=== PATIENT | male | born 1950 | race Caucasian/White ===

== ENCOUNTER 2019-10-19 11:05 | Outpatient (RCR) | payer MEDICARE, SELFPAY ==
--- NOTE | 2019-10-19 13:12 | PTOPEVAL ---
Thank you for referring this patient to [facility]. Please review, sign, date and return this plan of care RAMÓN. I agree with and certify that the following plan of care is medically necessary. Referring Physician Date Admitting Provider: Attending Provider: PHYSICIAN NOT ON STAFF Referring Provider: *PT Outpatient Evaluation Start: 10/19/19 11:14 Freq: Status: Active Protocol: Document 10/19/19 11:15 Helen (Rec: 10/19/19 13:01 [facility] [id number]) Therapy Assessment Status Assessment Status Assessment Status Evaluation Outpatient Past Medical History Neurological History Hx Cerebrovascular Accident (CVA) Yes Hx Seizures Yes Cardiovascular History Hx Hypertension Yes Endocrine History Hx Thyroidectomy Yes: THYROID CA Evaluation Information Problem Diagnosis s/p R quad tendon repair Onset 09/18/19 Additional Evaluation Detail surgery was on 10/05/19. Subjective Information patient reports he was Query Text:As Reported By Patient/ changing a light bulb on 09/18 Family . he reports he fell down 3 steps and ran into a concrete floor. he reports he tore his R quad tendon. he reports he had surgery to repair the torn tendon 2 weeks ago. Prior Level of Function Comments Additional Prior Level of Function patient reports prior fallr he Comments was independent with all activities. he reports he is retired but is active daily. he reports he likes to peacock and walk. Pain Assessment Timing of Pain Assessment Timing of Pain Assessment Assessment Self Report Self Report Pain Level 0 Pain Score Pain Score 0: Self Report Additional Pain Score Comments patient reports no pain for the last week. Lower Extremity Range of Motion Knee Range of Motion Right Knee Flexion Range of Motion - Passive 30 Knee Extension Range of Motion - Passive -5 Lower Extremity Muscle Strength Testing General Lower Extremity Strength Gross Lower Extremity Strength moderate quad recruitment of the R quadriceps in supine. R knee strength not measured this date due to inability to perform active knee mobility at this time. Palpation Assessment Palpation Palpation moderate palpable swelling noted in surrounding the R k
--- NOTE | 2019-12-26 07:19 | PTOPEVAL ---
Thank you for referring this patient to [facility]. Please review, sign, date and return this plan of care RAMÓN. I agree with and certify that the following plan of care is medically necessary. Referring Physician Date Admitting Provider: Attending Provider: PHYSICIAN NOT ON STAFF Referring Provider: *PT Outpatient Evaluation Start: 10/19/19 11:14 Freq: Status: Active Protocol: Document 12/19/19 07:30 KORICAMELIARao (Rec: 12/26/19 07:19 [facility] [id number]) Therapy Assessment Status Assessment Status Assessment Status Re-evaluation Outpatient Past Medical History Neurological History Hx Cerebrovascular Accident (CVA) Yes Hx Seizures Yes Cardiovascular History Hx Hypertension Yes Endocrine History Hx Thyroidectomy Yes: THYROID CA Pain Assessment Pain Scale Pain Scale Used Numeric (1 - 10) Self Report Pain Assessment Right Knee(s) Reported Pain Level 2 Pain Score Pain Score 2: Self Report Lower Extremity Range of Motion General Lower Extremity Range of Motion Gross Lower Extremity Range of Motion Pt. presents with 0-100 Comments degrees right knee AROM Lower Extremity Muscle Strength Testing General Lower Extremity Strength Gross Lower Extremity Strength right hip flexion 4+/5, right hip abduction 4/5, right knee extension 4-/5, right knee flexion 4+/5, Gait Assessment Gait Assessment Additional Ambulation Comments Pt. ambulates without an AD demonstrating slightly decreased stance time on the right compared to the left. Pt. continues to have difficulty with establishing reciprical pattern with stair navigation and cannot eccentricly load the right l.e . PT Clinical Summary Clinical Summary Protocol: PTEVCODE Clinical Summary Pt. has met initial goals and new goals were established on 12/05/19. He continues to progress ROM gradually. Continued treatment is indicated in order to normalize gait and strength and continue to progress toward latest established goals. PT Services Indicated Yes Rehabilitation Potential Excellent Potential Barriers to Goal Achievements None Support Requirements For Optimal None
--- NOTE | 2020-01-09 09:33 | PTOPEVAL ---
Thank you for referring this patient to [facility]. Please review, sign, date and return this plan of care RAMÓN. I agree with and certify that the following plan of care is medically necessary. Referring Physician Date Admitting Provider: Attending Provider: PHYSICIAN NOT ON STAFF Referring Provider: *PT Outpatient Evaluation Start: 10/19/19 11:14 Freq: Status: Active Protocol: Document 01/09/20 09:28 KORICAMELIARao (Rec: 01/09/20 09:33 [facility] [id number]) Therapy Assessment Status Assessment Status Assessment Status Discharge Outpatient Past Medical History Neurological History Hx Cerebrovascular Accident (CVA) Yes Hx Seizures Yes Cardiovascular History Hx Hypertension Yes Endocrine History Hx Thyroidectomy Yes: THYROID CA Evaluation Information Problem Subjective Information Pt. reports he was able to Query Text:As Reported By Patient/ walk through the [facility] yesterday. He states that he still has knee stiffness, but notes gradual improvement every week. He states that he will continue to exercise at home and is ready for discharge. Pain Assessment Self Report Self Report Pain Level 0 Pain Score Pain Score 0: Self Report Lower Extremity Range of Motion General Lower Extremity Range of Motion Gross Lower Extremity Range of Motion Right knee AROM present at 0- Comments 112 degrees. Lower Extremity Muscle Strength Testing General Lower Extremity Strength Gross Lower Extremity Strength bilateral hip flexion 5/5, bilateral knee flexion 5/5, bilateral knee extension 5/5, bilateral ankle dorsiflexion 5 /5 Pt. completes right l.e. SLR without any noted lag. Edema Assessment Location Right Leg(s) Edema Degree 1+ (2 mm or less) Gait Assessment Gait Assessment Additional Ambulation Comments Pt. ambulates over level surface with equal right and left stance time. He is able to ascend and descend steps for 20 reps wtih reciprical pattern. PT Clinical Summary Clinical Summary Protocol: PTEVCODE Clinical Summary Pt. has met majority of goals. Only exception is in regards to ROM, but he demonstrates excellent progress toward goal
== END 2020-01-09 17:52 | disposition home or self-care (01) ==
LOC: CHSPT 11:05
DX: M66.251 Spontaneous rupture of extensor tendons, right thigh (principal)
CPT/HCPCS: 97016; 97110; 97112; 97161; 97530

== ENCOUNTER 2020-05-27 07:22 | Outpatient (CLI) | payer MEDICARE, SELFPAY ==
[2020-05-27 07:32] LABS: Basophils Absolute Auto 0.02 K/mm3 (0.00-0.10); Basophils Percent Auto 0.3 % (0.0-1.0); Eosinophils Absolute Auto 0.17 K/mm3 (0.02-0.50); Eosinophils Percent Auto 2.3 % (1.0-6.0); Hematocrit 41.1 % (37.0-46.0); Hemoglobin 14.4 g/dL (12.4-15.3); Immature Granulocyte Absolute 0.02 K/mm3 (0.00-0.00); Immature Granulocyte Percent A 0.3 % (0.0-0.0); Lymphocytes Percent Auto 14.7 % (18.0-42.0); Mean Corpuscular Hemoglobin 31.2 pg (27.0-31.0); Monocytes Absolute Auto 0.74 K/mm3 (0.10-0.90); Monocytes Percent Auto 9.9 % (2.0-11.0); Neutrophils Absolute Auto 5.4 K/mm3 (1.7-7.2); Neutrophils Percent Auto 72.5 % (50.0-70.0); Platelet Count Result 199 K/mm3 (150-420); Red Blood Count 4.62 M/mm3 (4.70-6.10); Red Cell Distribution Width 12.1 % (11.6-14.4); White Blood Count 7.5 K/mm3 (4.8-10.8)
[2020-05-27 07:47] LABS: Hemoglobin A1C 6.4 % (<5.7)
[2020-05-27 09:07] LABS: Alanine Aminotransferase 84 U/L (16-63); Albumin Level 3.8 g/dL (3.4-5.0); Alkaline Phosphatase 110 U/L (46-116); Anion Gap 11.8 mmol/L (7-16); Aspartate Amino Transferase 61 U/L (15-37); Bilirubin,Total 0.7 mg/dL (0.00-1.00); Blood Urea Nitrogen 25 mg/dL (7-18); Calcium 8.7 mg/dL (8.5-10.1); Carbon Dioxide 31 mmol/L (21-32); Chloride 102 mmol/L (98-108); Cholesterol 182 mg/dL (0-200); Estimated Glomerular Filt Rate > 60; Glucose 134 mg/dL (70-99); HDL Direct 54 mg/dL (40-60); LDL Cholesterol Calculated 108 mg/dL (<130); Osmolality Calculated 298 mOsm/kg (285-295); Potassium 3.8 mmol/L (3.5-5.1); Sodium 141 mmol/L (136-145); Thyroid Stimulating Hormone 0.23 uIU/mL (0.36-3.74); Total Protein 6.9 g/dL (6.4-8.2); Triglycerides 102 mg/dL (0-150)
[2020-05-27 09:28] LABS: Prostate Specific Antigen 6.8 ng/mL (< OR = 4.0)
[2020-05-27 10:19] LABS: Add Urine Microscopic? NO; Appearance Urine Clear (Clear); Bilirubin Urine Negative (Negative); Blood Urine Negative (Negative); Color Urine Yellow (Yellow); Glucose Urine UA Negative (Negative); Ketones Urine Negative (Negative); Leukocyte Esterase Ur Negative LEU/UL (Negative); Nitrate Urine Negative (Negative); Protein Urine Negative (Negative); Specific Grav Ur 1.025 (1.010-1.020); Urobilinogen Urine 0.2 mg/dL (0.2-1.0)
== END 2020-05-27 07:23 | disposition home or self-care (01) ==
PROVIDERS: PCP Internal Medicine; Visit Provider Internal Medicine
DX: E78.2 Mixed hyperlipidemia (principal); E03.9 Hypothyroidism, unspecified; I10 Essential (primary) hypertension; R97.20 Elevated prostate specific antigen [PSA]; R73.03 Prediabetes
CPT/HCPCS: 36415; 80053; 80061; 81003; 83036; 84153; 84443; 85025

== ENCOUNTER 2021-01-14 07:17 | Outpatient (CLI) | payer MEDICARE, SELFPAY ==
[2021-01-14 07:28] LABS: Basophils Absolute Auto 0.02 K/mm3 (0.00-0.10); Basophils Percent Auto 0.3 % (0.0-1.0); Eosinophils Absolute Auto 0.24 K/mm3 (0.02-0.50); Hematocrit 41.8 % (37.0-46.0); Hemoglobin 14.4 g/dL (12.4-15.3); Immature Granulocyte Absolute 0.03 K/mm3 (0.00-0.00); Immature Granulocyte Percent A 0.4 % (0.0-0.0); Lymphocytes Percent Auto 13.9 % (18.0-42.0); Mean Corpuscular HGB Conc 34.4 g/dL (32.0-36.0); Mean Corpuscular Hemoglobin 30.6 pg (27.0-31.0); Mean Corpuscular Volume 88.9 fL (78.0-102.0); Mean Platelet Volume 9.1 fl (8.7-11.0); Monocytes Absolute Auto 0.84 K/mm3 (0.10-0.90); Monocytes Percent Auto 10.6 % (2.0-11.0); Neutrophils Absolute Auto 5.7 K/mm3 (1.7-7.2); Neutrophils Percent Auto 71.8 % (50.0-70.0); Platelet Count Result 221 K/mm3 (150-420); Red Cell Distribution Width 11.9 % (11.6-14.4); White Blood Count 7.9 K/mm3 (4.8-10.8)
[2021-01-14 09:04] LABS: Alanine Aminotransferase 49 U/L (16-63); Albumin Level 3.9 g/dL (3.4-5.0); Alkaline Phosphatase 109 U/L (46-116); Anion Gap 9 mmol/L (8-16); Aspartate Amino Transferase 28 U/L (15-37); Bilirubin,Total 0.7 mg/dL (0.00-1.00); Blood Urea Nitrogen 20 mg/dL (7-18); Calcium 8.9 mg/dL (8.5-10.1); Carbon Dioxide 31 mmol/L (21-32); Chloride 103 mmol/L (98-108); Cholesterol 158 mg/dL (0-200); Estimated Glomerular Filt Rate > 60; Glucose 121 mg/dL (70-99); HDL Direct 57 mg/dL (40-60); LDL Cholesterol Calculated 89 mg/dL (<130); Osmolality Calculated 299 mOsm/kg (285-295); Prostate Specific Antigen 6.4 ng/mL (< OR = 4.0); Sodium 143 mmol/L (136-145); Thyroid Stimulating Hormone 0.06 uIU/mL (0.36-3.74); Total Protein 6.7 g/dL (6.4-8.2); Triglycerides 61 mg/dL (0-150)
== END 2021-01-14 07:18 | disposition home or self-care (01) ==
LOC: CHSLAB 07:19
PROVIDERS: PCP Internal Medicine; Visit Provider Internal Medicine
DX: E78.5 Hyperlipidemia, unspecified (principal); I10 Essential (primary) hypertension; R97.20 Elevated prostate specific antigen [PSA]
CPT/HCPCS: 36415; 80053; 80061; 84153; 84443; 85025

== ENCOUNTER 2021-07-06 10:04 | Outpatient (CLI) | payer MEDICARE, SELFPAY ==
[2021-07-06 11:09] LABS: Prostate Specific Antigen 7.8 ng/mL (< OR = 4.0); Thyroid Stimulating Hormone 0.46 uIU/mL (0.36-3.74)
== END 2021-07-06 10:05 | disposition home or self-care (01) ==
LOC: CHSLAB 10:06
PROVIDERS: PCP Internal Medicine; Visit Provider Internal Medicine
DX: E03.9 Hypothyroidism, unspecified (principal); R97.20 Elevated prostate specific antigen [PSA]
CPT/HCPCS: 36415; 84153; 84443

== ENCOUNTER 2022-04-13 08:56 | Outpatient (CLI) | payer MEDICARE, SELFPAY | END 2022-04-13 08:57 | disposition home or self-care (01) | LOC: CHSLAB 09:01 | PROVIDERS: PCP Internal Medicine; Visit Provider Specialist | DX: L85.9 Epidermal thickening, unspecified (principal) | CPT/HCPCS: 88305 ==

== ENCOUNTER 2022-05-04 07:11 | Outpatient (CLI) | payer MEDICARE, SELFPAY ==
[2022-05-04 08:06] LABS: SARS-CoV-2 RNA PCR Negative (Negative)
== END 2022-05-04 07:12 | disposition home or self-care (01) ==
LOC: CHSLAB 07:14
PROVIDERS: PCP Internal Medicine; Visit Provider Internal Medicine
DX: J06.9 Acute upper respiratory infection, unspecified (principal); J02.9 Acute pharyngitis, unspecified; Z20.822 Contact with and (suspected) exposure to COVID-19
CPT/HCPCS: 87081; 87880; C9803; U0003; U0005

== ENCOUNTER 2022-07-02 07:36 | Outpatient (CLI) | payer MEDICARE, SELFPAY ==
--- NOTE | ~2022-07-02 | XR_ITS ---
XR lumbar spine 2-3V 07/02/2022 08:00 Indication: Low back pain Procedure: 3 views lumbar spine Comparison: No prior studies for comparison. 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 Vertebral bod y heights are maintained. There is mild-moderate disc narrowing at all lumbar levels. There is mild m ultilevel facet hypertrophy. No acute fracture, subluxation or dislocation. Sacral foramen are symmet tracie. Impression: 1: Moderate lumbar spondylosis. Reviewed, dictated and finalized at location A. Impression: 1: Moderate lumbar spondylosis.
--- NOTE | ~2022-07-02 | XR_ITS ---
XR hip LT min 2V 07/02/2022 08:00 Indication: Left hip pain Procedure: 3 views left hip Comparison: 10/07/2015 Findings: Mild-moderate osteoarthritis of the left hip. There is enthesopathy of the pelvis. There ar e are loose bodies adjacent to the hip. No acute fracture or traumatic malalignment. Impression: 1: Mild-moderate osteoarthritis of the left hip. Reviewed, dictated and finalized at location A. Impression: 1: Mild-moderate osteoarthritis of the left hip.
== END 2022-07-02 07:37 | disposition home or self-care (01) ==
LOC: CHSIMG 07:39
PROVIDERS: PCP Internal Medicine; Visit Provider Internal Medicine
DX: M54.50 Low back pain, unspecified (principal)
CPT/HCPCS: 72100; 73502

== ENCOUNTER 2022-07-07 07:57 | Outpatient (RCR) | payer MEDICARE, SELFPAY ==
--- NOTE | 2022-07-07 08:56 | PTOPEVAL1 ---
Evaluation Information Assessment Status Evaluation Diagnosis lower back pain, L hip pain Onset 07/02/22 Subjective Information patient reports he is having mm spasms in the lower back and pain in the L hip. he reports he is walking 2 miles every morning, but takes a little while to get going. he reports the spasms in the back usually occur during transitions with standing up and sitting down. he reports the back pain is located only to the L side/flank. he reports the L hip has been bothering him for the last few weeks. he reports the longer he is up and moving his L hip bothers him. he reports he feels better when getting up and moving for a few minutes. Reported Pain Level Pain Score 0,0: Self Report Assessment PT Clinical Summary mr. cuadra presents to skilled PT services for evaluation and treatment of L lower back and hip pain. he presents this date with signs and symptoms of lumbar spondylosis and L hip OA. he would do well to attend skilled PT to address his objective/functional deficits and progress towards a return to his prior level quality of life and functional activity performance. Plan of Care Interventions Electrical Stimulation,Gait Training,Hot Pack/Cold Pack,Manual Therapy,Neuro Re-education,Patient/ Caregiver Educati,Therapeutic Activities, Therapeutic Exercise PT Services Indicated Yes Treatment Frequency and 3x weekly for 12 visits Duration These treatments will address the objective and functional deficits as defined above. The patient will be advanced safely and appropriately in order for the patient to progress towards his/her prior level of function. Additional exercises will be introduced and as well as a comprehensive home exercise program upon discharge, if needed, ?to ensure carryover of functional gains achieved in the clinic. This treatment plan has been reviewed and agreement upon by the patient.
== END 2022-07-08 14:57 | disposition home or self-care (01) ==
LOC: CHSPT 07:57
PROVIDERS: PCP Internal Medicine; Visit Provider Internal Medicine
DX: M54.50 Low back pain, unspecified (principal)
CPT/HCPCS: 97014; 97110; 97140; 97161; G0283

== ENCOUNTER 2022-07-18 14:39 | Emergency (ER) | payer MEDICARE, SELFPAY ==
[2022-07-18 14:50] VITALS: BP 116/66; PULSE 84; RESP 20; TEMP 36.4; O2SAT 100
--- NOTE | 2022-07-18 15:18 | ED.SKABFB ---
HPI - Skin/Abscess/Foreign Bdy General Chief complaint: Skin/Abscess/Foreign Body Stated complaint: insect bite tailbone Time Seen by Provider: 07/18/22 14:43 Source: patient and RN notes reviewed Mode of arrival: ambulatory Limitations: no limitations History of Present Illness complaint: insect bite/sting (of tail-bone ) Onset (ago): day(s) (1) Tetanus up to date: unsure Location: buttocks Severity: mild Severity scale (1-10): 2 Quality: aching and dull Pain Consistency: constant Relieving factors: none Exacerbating factors: none Associated symptoms: denies other symptoms Treatments prior to arrival: none Related Data Home Medications Medication Instructions Recorded Confirmed amlodipine 10 mg tablet 10 mg PO DAILY 09/18/19 07/18/22 atorvastatin 80 mg tablet 80 mg PO HS 09/18/19 07/18/22 levetiracetam 500 mg tablet 500 mg PO DAILY 09/18/19 07/18/22 levothyroxine 137 mcg tablet 137 mcg PO DAILY 09/18/19 07/18/22 metoprolol tartrate 50 mg tablet 50 mg PO BID 09/18/19 07/18/22 Allergies Allergy/AdvReac Type Severity Reaction Status Date / Time No Known Allergies Allergy Verified 09/18/19 18:22 Review of Systems Review of Systems: All systems reviewed & are unremarkable except as noted in HPI and below Constitutional: Constitutional: Reports no additional constitutional complaints Eyes: Eyes: Reports no additional eye complaints ENT: Reports system reviewed and no additional complaints, except as documented Cardiovascular: Cardiovascular: Reports no additional cardiovascular complaints Respiratory: Respiratory: Reports no additional respiratory complaints Gastrointestinal: Gastrointestinal: Reports no additional gastrointestinal complaints Comments: spider bite to tail-bone Musculoskeletal: Musculoskeletal: Reports no additional musculoskeletal complaints Integumentary/Breasts: Skin/Breast: Reports system reviewed and no additional complaints, except as docu Neurologic: Reports system reviewed and no additional complaints, except as documented Psychiatric: Psychiatric: Reports no additional psychiatric complaints Endocrine: Endocrine: Reports no additional endocrine complaints Hematologic/Lymphatic: Hematologic/Lymphatic: Reports no additional hematologic/lymphatic complaints Allergic/Immunologic: Allergic/Immunologic: Reports no additional allergic/immunologic complaints PMFSH Past Medical History Medical History CVA (cerebral vascular accident) Spider bite Tail bone pain Thyroid cancer Surgical History Surgical History History of thyroid surgery Social History Social History Smoking status: Never smoker Alcohol intake: current Alcohol use details: Few Substance use: never Exam Const: General: healthy appearing and no acute distress Nutritional Appearance: well nourished Orientation/consciousness: patient oriented x3 Limitations: no limitations HENMT: Head: normal to inspection Ears: external ears normal, TM's normal bilaterally and EAC's normal General nose exam: Normal external nose present and Normal nares present Face and sinus: normal facial exam and sinuses nontender Mouth: Yes Normal oral and palatal mucosa present and Yes moist mucous membranes Teeth and gingiva: dentition normal Throat: posterior oropharynx normal Eyes: Conjunctivae: conjunctivae normal Pupils: Equal, round and reactive pupils present EOM: EOMs intact bilaterally Neck: Neck: normal visual inspection, no lymphadenopathy and no meningeal signs Chest: Chest palpation & inspection: normal inspection of the chest Resp: Effort & Inspection: normal respiratory effort Auscultation: clear to auscultation bilaterally Cardio: Rate: regular rate Rhythm: regular rhythm GI: GI Palp: Yes Soft to palpation and No Tenderness to pal
[2022-07-18] MEDS: ACETAMINOPHEN 325 MG TABLET 650 MG PO (15:23)
[2022-07-18] MEDS: cefTRIAXone 1 GM, LIDOCAINE HCL 1% LOCAL INJ 2.1 ML IM (15:24)
[2022-07-18 15:39] VITALS: BP 116/66; PULSE 84; RESP 20; TEMP 36.4; O2SAT 100
== END 2022-07-18 15:40 | disposition home or self-care (01) ==
PROVIDERS: Emergency Provider Emergency Medicine; PCP Internal Medicine
DX: S30.860A Insect bite (nonvenomous) of lower back and pelvis, initial encounter (principal); L03.317 Cellulitis of buttock
CPT/HCPCS: 96372; 99283; A9270; J0696

== ENCOUNTER 2022-07-22 07:37 | Outpatient (CLI) | payer MEDICARE, SELFPAY ==
--- NOTE | ~2022-07-22 | CT_ITS ---
EXAMINATION: CT abdomen pelvis w con INDICATION: Pelvic lymphadenopathy, history of prostate cancer TECHNIQUE: Computed tomographic images of the abdomen and pelvis were obtained after the administrati on of 100 cc of Omnipaque 350 intravenous contrast. The dose-length product (DLP) was 800.97 mGy-cm. Automated exposure control and iterative reconstruction technique were employed. COMPARISON: None available FINDINGS: Minimal dependent atelectasis is present in the lung bases. The heart size is normal. The l iver, spleen, pancreas, gallbladder, and adrenal glands are normal. Cysts of the kidneys measure up t o 1.8 cm on the right. No pathologically enlarged abdominal or pelvic lymph nodes are identified. The re is an approximately 2.6 x 0.9 cm rim-enhancing fluid collection of the left pelvis along the exter nal iliac vessels (image 140). There is moderate lumbar spondylosis. There is no free intraperitonea l gas or evidence of bowel obstruction. A retroaortic left renal vein is noted. IMPRESSION: 1. Small left pelvic abscess abutting the external iliac vessels. No pelvic lymphadenopathy. Reviewed, dictated and finalized at location B. IMPRESSION: 1. Small left pelvic abscess abutting the external iliac vessels. No pelvic lym phadenopathy.
[2022-07-22 07:49] LABS: Basophils Absolute Auto 0.01 K/mm3 (0.00-0.10); Basophils Percent Auto 0.1 % (0.0-1.0); Eosinophils Absolute Auto 0.05 K/mm3 (0.02-0.50); Eosinophils Percent Auto 0.5 % (1.0-6.0); Hematocrit 39.1 % (37.0-46.0); Hemoglobin 13.6 g/dL (12.4-15.3); Immature Granulocyte Absolute 0.06 K/mm3 (0.00-0.00); Immature Granulocyte Percent A 0.6 % (0.0-0.0); Mean Corpuscular HGB Conc 34.8 g/dL (32.0-36.0); Mean Corpuscular Hemoglobin 31.1 pg (27.0-31.0); Mean Corpuscular Volume 89.3 fL (78.0-102.0); Monocytes Absolute Auto 0.44 K/mm3 (0.10-0.90); Monocytes Percent Auto 4.4 % (2.0-11.0); Neutrophils Absolute Auto 8.7 K/mm3 (1.7-7.2); Neutrophils Percent Auto 87.4 % (50.0-70.0); Platelet Count Result 229 K/mm3 (150-420); Red Blood Count 4.38 M/mm3 (4.70-6.10); Red Cell Distribution Width 12.5 % (11.6-14.4)
[2022-07-22 08:01] LABS: Estimated Glomerular Filt Rate > 60
[2022-07-22 08:16] LABS: Alanine Aminotransferase 69 U/L (16-63); Albumin Level 3.6 g/dL (3.4-5.0); Alkaline Phosphatase 90 U/L (46-116); Anion Gap 11 mmol/L (8-16); Aspartate Amino Transferase 36 U/L (15-37); Bilirubin,Total 0.4 mg/dL (0.00-1.00); Blood Urea Nitrogen 19 mg/dL (7-18); CRP < 0.5 mg/dL (0.0-0.9); Calcium 8.6 mg/dL (8.5-10.1); Carbon Dioxide 24 mmol/L (21-32); Chloride 98 mmol/L (98-108); Glucose 182 mg/dL (70-99); Osmolality Calculated 283 mOsm/kg (285-295); Potassium 4.4 mmol/L (3.5-5.1); Sodium 133 mmol/L (136-145); Total Protein 6.8 g/dL (6.4-8.2)
[2022-07-22 08:22] LABS: Prostate Specific Antigen < 0.1 ng/mL (< OR = 4.0)
== END 2022-07-22 07:38 | disposition home or self-care (01) ==
LOC: CHSIMG 07:38
PROVIDERS: PCP Internal Medicine; Visit Provider Internal Medicine
DX: R59.1 Generalized enlarged lymph nodes (principal); Z12.5 Encounter for screening for malignant neoplasm of prostate; M25.559 Pain in unspecified hip
CPT/HCPCS: 74177; 80053; 84153; 85025; 86140; G0103; Q9967

== ENCOUNTER 2022-12-16 07:25 | Outpatient (CLI) | payer MEDICARE, SELFPAY ==
[2022-12-16 07:43] LABS: Basophils Absolute Auto 0.02 K/mm3 (0.00-0.10); Basophils Percent Auto 0.2 % (0.0-1.0); Eosinophils Absolute Auto 0.28 K/mm3 (0.02-0.50); Eosinophils Percent Auto 3.3 % (1.0-6.0); Hematocrit 43.5 % (37.0-46.0); Hemoglobin 14.8 g/dL (12.4-15.3); Immature Granulocyte Absolute 0.04 K/mm3 (0.00-0.00); Immature Granulocyte Percent A 0.5 % (0.0-0.0); Lymphocytes Absolute Auto 1.18 K/mm3 (1.10-4.50); Lymphocytes Percent Auto 13.8 % (18.0-42.0); Mean Corpuscular Hemoglobin 30.7 pg (27.0-31.0); Mean Corpuscular Volume 90.2 fL (78.0-102.0); Mean Platelet Volume 9.1 fl (8.7-11.0); Monocytes Absolute Auto 0.87 K/mm3 (0.10-0.90); Monocytes Percent Auto 10.2 % (2.0-11.0); Neutrophils Absolute Auto 6.2 K/mm3 (1.7-7.2); Platelet Count Result 229 K/mm3 (150-420); Red Blood Count 4.82 M/mm3 (4.70-6.10); Red Cell Distribution Width 11.1 % (11.6-14.4); White Blood Count 8.5 K/mm3 (4.8-10.8)
[2022-12-16 08:00] LABS: Hemoglobin A1C 6.1 % (<5.7)
[2022-12-16 08:45] LABS: Alanine Aminotransferase 40 U/L (16-63); Albumin Level 3.8 g/dL (3.4-5.0); Alkaline Phosphatase 120 U/L (46-116); Anion Gap 9 mmol/L (8-16); Aspartate Amino Transferase 26 U/L (15-37); Bilirubin,Total 0.7 mg/dL (0.00-1.00); Blood Urea Nitrogen 21 mg/dL (7-18); Calcium 8.8 mg/dL (8.5-10.1); Carbon Dioxide 30 mmol/L (21-32); Chloride 103 mmol/L (98-108); Cholesterol 187 mg/dL (0-200); Estimated Glomerular Filt Rate > 60; Glucose 137 mg/dL (70-99); HDL Direct 61 mg/dL (40-60); LDL Cholesterol Calculated 97 mg/dL (<130); Osmolality Calculated 299 mOsm/kg (285-295); Potassium 3.6 mmol/L (3.5-5.1); Sodium 142 mmol/L (136-145); Thyroid Stimulating Hormone 0.34 uIU/mL (0.36-3.74); Total Protein 6.9 g/dL (6.4-8.2); Triglycerides 147 mg/dL (0-150)
[2022-12-16 09:34] LABS: Prostate Specific Antigen < 0.1 ng/mL (< OR = 4.0)
== END 2022-12-16 07:26 | disposition home or self-care (01) ==
LOC: CHSLAB 07:27
PROVIDERS: PCP Internal Medicine; Visit Provider Internal Medicine
DX: I10 Essential (primary) hypertension (principal); E78.5 Hyperlipidemia, unspecified; R73.9 Hyperglycemia, unspecified; R97.20 Elevated prostate specific antigen [PSA]
CPT/HCPCS: 36415; 80053; 80061; 83036; 84153; 84443; 85025

== ENCOUNTER 2023-06-15 07:46 | Outpatient (CLI) | payer MEDICARE, SELFPAY ==
[2023-06-15 08:49] LABS: Prostate Specific Antigen < 0.1 ng/mL (< OR = 4.0)
== END 2023-06-15 07:47 | disposition home or self-care (01) ==
LOC: CHSLAB 07:48
PROVIDERS: PCP Internal Medicine; Visit Provider Internal Medicine
DX: R97.20 Elevated prostate specific antigen [PSA] (principal)
CPT/HCPCS: 36415; 84153

== ENCOUNTER 2023-07-15 15:24 | Outpatient (CLI) | payer MEDICARE, SELFPAY ==
--- NOTE | ~2023-07-15 | XR_ITS ---
EXAMINATION: XR shoulder LT min 2V DATE: 07/15/2023 15:50 INDICATION: Lateral left shoulder pain. TECHNIQUE: 4 views of left shoulder were obtained. COMPARISON: None. FINDINGS: Bone alignment is normal. No fracture. There is moderate osteoarthritis of glenohumeral urszula nt and severe osteoarthritis of the acromioclavicular joint. There is mild calcific tendinitis of the rotator cuff. IMPRESSION: 1. Polyarticular osteoarthritis 2. Mild calcific tendinitis of the rotator cuff. Reviewed, dictated and finalized at location A.
== END 2023-07-15 15:25 | disposition home or self-care (01) ==
LOC: CHSIMG 15:26
PROVIDERS: PCP Internal Medicine; Visit Provider Internal Medicine
DX: M25.512 Pain in left shoulder (principal); M19.012 Primary osteoarthritis, left shoulder; M75.32 Calcific tendinitis of left shoulder
CPT/HCPCS: 73030

== ENCOUNTER 2023-07-29 07:43 | Outpatient (RCR) | payer MEDICARE, SELFPAY ==
[2023-07-29 07:06] VITALS: BP_SYST 170
--- NOTE | 2023-08-10 09:39 | OPREHPOC ---
Outpatient Therapy Plan of Care This is a Multidisciplinary Plan of Care that may contain components documented by all disciplines (PT, OT, and ST.) PT Problem 1 PT Problem #1 Knowledge Deficit PT Goal 1 Goal 1. Patient to demonstrate independence with HEP to improve progress made in PT. Target Visit 3 PT Problem 2 PT Problem #2 Impaired Range of Motion PT Goal 1 Goal 1. Patient to improve L shoulder flexion AROM to 160 degrees to increase ability to reach into overhead kitchen cabinets. 2. Patient to improve L shoulder abduction AROM to 160 degrees to increase ability to reach top of head for grooming activities. Target Visit 6 PT Problem 3 PT Problem #3 Impaired Strength PT Goal 1 Goal 1. Patient to achieve 5/5 L shoulder strength to improve ability to lift a box to overhead shelf. Target Visit 6 PT Problem 4 PT Problem #4 Pain PT Goal 1 Goal 1. Patient to report pain as no more than 2/10 at worst to improve tolerance for performing activities at his job. Target Visit 6 PT Problem 5 PT Problem #5 Impaired Functional Mobil PT Goal 1 Goal 1. 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 2. Patient to lift 20 pounds overhead to increase ability to move boxes in home. Target Visit 6
--- NOTE | 2023-08-10 09:42 | PTOPEVAL1 ---
Assessment and note entered by JT File, PT Evaluation Information Assessment Status Evaluation Diagnosis L shoulder pain Onset 07/25/23 Subjective Information Patient reports he has arthritis and clacifications in the L shoulder. He notes pain in the shoulder started about 2-3 years ago, stating the pain started to increase a few weeks ago. He went to the doctor and recieved a cortisone shot on Tuesday of this week. He notes he had x-rays taken, showing the arthritis. He notes a history of back pain and arthritis throughout the body. 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 He notes no pain at rest. Patient is left- handed. Assessment PT Clinical Summary Mr. Stover is a 73 y/o male who presents to skilled PT to address L shoulder pain. He presents with limitations in L shoulder AROM, strength, and posture. Patient currently has 9% functional decline as assessed by the Quick DASH. 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 Patient also reports limitations in lifting heavier weights, which tends to cause pain after performing. Appropriate to continue skilled PT to address ROM, strength, and postural impairments to aid in patient returning to prior level of function. Plan of Care Interventions Electrical Stimulation,Hot Pack/Cold Pack,Manual Therapy,Neuro Re-education,Patient/Caregiver Educati,Therapeutic Activities,Therapeutic Exercise PT Services Indicated Yes Treatment Frequency and 2x/week for 6 visits Duration These treatments will address the objective and functional deficits as defined above. The patient will be advanced safely and appropriately in order for the patient to progress towards his/her prior level of function. Additional exercises will be introduced and as well as a comprehensive home exercise program upon discharge, if needed, ?to ensure carryover of functional gains achieved in the clinic. This treatment plan has been reviewed and agreement upon by the patient.
--- NOTE | 2023-08-17 11:34 | OPREHPOC ---
Outpatient Therapy Plan of Care This is a Multidisciplinary Plan of Care that may contain components documented by all disciplines (PT, OT, and ST.) PT Problem 1 PT Problem #1 Knowledge Deficit PT Goal 1 Goal 1. Patient to demonstrate independence with HEP to improve progress made in PT. Target Visit 3 Progress Met PT Problem 2 PT Problem #2 Impaired Range of Motion PT Goal 1 Goal 1. Patient to improve L shoulder flexion AROM to 160 degrees to increase ability to reach into overhead kitchen cabinets. 2. Patient to improve L shoulder abduction AROM to 160 degrees to increase ability to reach top of head for grooming activities. Target Visit 6 Progress Partially Met PT Problem 3 PT Problem #3 Impaired Strength PT Goal 1 Goal 1. Patient to achieve 5/5 L shoulder strength to improve ability to lift a box to overhead shelf. Target Visit 6 Progress Partially Met PT Problem 4 PT Problem #4 Pain PT Goal 1 Goal 1. Patient to report pain as no more than 2/10 at worst to improve tolerance for performing activities at his job. Target Visit 6 Progress Met PT Problem 5 PT Problem #5 Impaired Functional Mobil PT Goal 1 Goal 1. 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 2. Patient to lift 20 pounds overhead to increase ability to move boxes in home. Target Visit 6 Progress Met
--- NOTE | 2023-08-17 11:35 | PTOPDC ---
Assessment and note entered by JT File, PT Evaluation Information Assessment Status Discharge Diagnosis L shoulder pain Onset 07/25/23 Subjective Information patient reports he feels Great this date. he reports no pain in the L shoulder. he reports he is not limited in any home or community activities . Reported Pain Level Pain Score 0: Self Report Assessment PT Clinical Summary mr. cuadra presents to skilled PT for his 6th skilled therapy visit today. he has nearly met all goals, except for a minor deficit in ER strength and shoulder flexion and abduction rom. he will DC skilled PT today, and continue with HEP exercises at home independent Plan of Care PT Services Indicated Yes
== END 2023-08-17 15:16 | disposition home or self-care (01) ==
LOC: CHSPT 07:43
PROVIDERS: PCP Internal Medicine; Visit Provider Internal Medicine
DX: M25.512 Pain in left shoulder (principal)
CPT/HCPCS: 97110; 97112; 97161

== ENCOUNTER 2023-12-06 11:07 | Outpatient (CLI) | payer MEDICARE, SELFPAY | END 2023-12-06 11:08 | disposition home or self-care (01) | LOC: CHSLAB 11:10 | PROVIDERS: PCP Internal Medicine; Visit Provider Specialist | DX: C44.329 Squamous cell carcinoma of skin of other parts of face (principal) | CPT/HCPCS: 88305 ==

== ENCOUNTER 2024-05-15 07:16 | Outpatient (CLI) | payer MEDICARE, SELFPAY ==
[2024-05-15 07:42] LABS: Hematocrit 42.1 % (37.0-46.0); Hemoglobin 14.3 g/dL (12.4-15.3); Mean Corpuscular Hemoglobin 31.1 pg (27.0-31.0); Mean Corpuscular Volume 91.5 fL (78.0-102.0); Mean Platelet Volume 9.1 fl (8.7-11.0); Platelet Count Result 198 K/mm3 (150-420); White Blood Count 6.7 K/mm3 (4.8-10.8)
[2024-05-15 08:21] LABS: Alanine Aminotransferase 35 U/L (16-63); Albumin Level 3.8 g/dL (3.4-5.0); Alkaline Phosphatase 114 U/L (46-116); Anion Gap 7 mmol/L (4-12); Aspartate Amino Transferase 26 U/L (15-37); Bilirubin,Total 0.7 mg/dL (0.00-1.00); Blood Urea Nitrogen 16 mg/dL (7-18); Calcium 8.8 mg/dL (8.5-10.1); Carbon Dioxide 31 mmol/L (21-32); Chloride 102 mmol/L (98-108); Cholesterol 165 mg/dL (0-200); Estimated Glomerular Filt Rate > 60; Glucose 126 mg/dL (70-99); HDL Direct 59 mg/dL (40-60); LDL Cholesterol Calculated 83 mg/dL (<130); Osmolality Calculated 293 mOsm/kg (285-295); Potassium 3.9 mmol/L (3.5-5.1); Prostate Specific Antigen < 0.1 ng/mL (< OR = 4.0); Sodium 140 mmol/L (136-145); Thyroid Stimulating Hormone 0.32 uIU/mL (0.36-3.74); Total Protein 6.8 g/dL (6.4-8.2); Triglycerides 117 mg/dL (0-150)
[2024-05-15 13:43] LABS: Appearance Urine Clear (Clear); Bilirubin Urine Negative (Negative); Blood Urine Negative (Negative); Color Urine Yellow (Yellow); Glucose Urine UA Negative (Negative); Ketones Urine Negative (Negative); Leukocyte Esterase Ur Negative (Negative); Nitrate Urine Negative (Negative); Protein Urine Negative (Negative); Specific Grav Ur 1.025 (1.010-1.020); Urobilinogen Urine 0.2 mg/dL (0.2-1.0)
[2024-05-15 13:44] LABS: Add Urine Microscopic? NO
[2024-05-15 14:00] LABS: Hemoglobin A1C 5.8 % (<5.7)
[2024-05-16 09:29] LABS: LH 5.8 mIU/mL (1.6-15.2)
[2024-05-18 17:08] LABS: Testosterone Free 38.4 pg/mL (30.0-135.0); Testosterone Total 313 ng/dL (250-1100)
== END 2024-05-15 07:17 | disposition home or self-care (01) ==
LOC: CHSLAB 07:18
PROVIDERS: PCP Internal Medicine; Visit Provider Internal Medicine
DX: C61 Malignant neoplasm of prostate (principal); I10 Essential (primary) hypertension; R73.01 Impaired fasting glucose
CPT/HCPCS: 36415; 80053; 80061; 81003; 83002; 83036; 84153; 84402; 84403; 84443; 85027

== ENCOUNTER 2024-11-03 15:58 | Emergency (ER) | payer MEDICARE, SELFPAY ==
--- NOTE | 2024-11-03 16:22 | ED.BACK ---
HPI - Back Pain/Injury General Chief Complaint: Back Pain/Injury Stated Complaint: back pain Source: patient Mode of arrival: ambulatory Limitations: no limitations History of Present Illness HPI Narrative: patient is a 74-year-old male with right lower back pain since this afternoon. He was sitting for a prolonged period of time and got up quickly and sustain lower back pain. This has happened to him in the past few years ago. He has known arthritis of the spine. He just wanted pain control at this evening. No injuries. No history of renal stones. No hematuria. MD elicited complaint: back pain Pertinent past history: prior back pain Onset (ago): hour(s) (2) Timing: constant Severity: moderate Pain scale (0-10): 8 Similar Symptoms Previously: Yes Quality: sharp and stabbing Location: lumbar spine Radiation: none Exacerbating factors: movement Relieving factors: immobilization Context: other ( Prior similar symptoms while getting up fast from a long sit) Associated symptoms: denies other symptoms Treatments prior to arrival: other ( none) Work related injury: No Related Data Home Medications ?Medication ?Instructions ?Recorded ?Confirmed ?Last Taken ?Type amlodipine 10 mg tablet 10 mg PO DAILY 09/18/19 08/15/22 Unknown History atorvastatin 80 mg tablet 80 mg PO HS 09/18/19 08/15/22 Unknown History levetiracetam 500 mg tablet 500 mg PO DAILY 09/18/19 08/15/22 Unknown History levothyroxine 137 mcg tablet 137 mcg PO DAILY 09/18/19 08/15/22 Unknown History metoprolol tartrate 50 mg tablet 50 mg PO BID 09/18/19 08/15/22 Unknown History alprazolam 0.25 mg tablet (Xanax) 0.25 mg PO QHS PRN 08/04/22 08/15/22 Unknown History aspirin 325 mg tablet 325 mg PO DAILY 08/04/22 08/15/22 Unknown History gabapentin 300 mg capsule 300 mg PO DAILY 08/04/22 08/15/22 Unknown History telmisartan 80 1 tablet PO DAILY 08/04/22 08/15/22 Unknown History mg-hydrochlorothiazide 12.5 mg tablet valacyclovir 1 gram tablet 1,000 mg PO DAILY 08/04/22 08/15/22 Unknown History Allergies Allergy/AdvReac Type Severity Reaction Status Date / Time No Known Allergies Allergy Verified 08/12/22 13:02 Review of Systems Review of Systems: All systems reviewed & are unremarkable except as noted in HPI and below Constitutional: Constitutional: Reports no additional constitutional complaints Eyes: Eyes: Reports no additional eye complaints ENT: Reports system reviewed and no additional complaints, except as documented Cardiovascular: Cardiovascular: Reports no additional cardiovascular complaints Respiratory: Respiratory: Reports no additional respiratory complaints Gastrointestinal: Gastrointestinal: Reports no additional gastrointestinal complaints Genitourinary: Genitourinary: Reports no additional male genitourinary complaints Musculoskeletal: Musculoskeletal: Reports no additional musculoskeletal complaints Integumentary/Breasts: Skin/Breast: Reports system reviewed and no additional complaints, except as docu Neurologic: Reports system reviewed and no additional complaints, except as documented Psychiatric: Psychiatric: Reports no additional psychiatric complaints Endocrine: Endocrine: Reports no additional endocrine complaints Hematologic/Lymphatic: Hematologic/Lymphatic: Reports no additional hematologic/lymphatic complaints Allergic/Immunologic: Allergic/Immunologic: Reports no additional allergic/immunologic complaints PMFSH Past Medical History Medical History High cholesterol Prostate cancer Tail bone pain Spider bite Seizure Hypertension Thyroid cancer CVA (cerebral vascular accident) Surgical History Surgical History History of right knee surgery History of prostatectomy History of thyroid surgery Family History Family History Father Cancer Hypertension Mother Acute myocardial infarction Sibling Heart disease Hypertension Diabetes mellitus Grandparent Cerebrovascular accident Breast cancer Social History Social History Smoking status: Former smoker Tobacco type: cigarettes Alcohol intake: current Alcohol use details: socially Substance use: never Living arrangements: with family Occupation/Education: retired 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 Exam Const: General: healthy appearing Nutritional Appearance: well nourished Orientation/consciousness: patient oriented x3 Limitations: no limitations HENMT: Head: normal to inspection Ears: external ears normal Face/Nose/Sinus: Normal external nose present Eyes: Conjunctivae: conjunctivae normal Pupils: Equal, round and reactive pupils present EOM: EOMs intact bilaterally Neck: Neck: normal visual inspection Chest: Chest palpation & inspection: normal inspection of the chest Resp: Effort & Inspection: normal respiratory effort and not labored Auscultation: clear to auscultation bilaterally and no crackles Cardio: Rate: regular rate Rhythm: regular rhythm Heart sounds: no murmurs GI: Inspection: non-distended Auscultation: normal bowel sounds : General: Yes bladder normal to palpation Back/Spine/Pelvis: Back: no CVA tenderness Other: right paraspinal muscles of the L4-5 region tender and tight Skin: General skin exam: normal color Rashes: no rashes Wounds: no wounds Neuro: General: patient oriented x3 Cranial nerves: Yes Nystagmus not present Speech: normal speech Gait exam (Neuro): Normal gait present Extrem: General: normal to inspection Psych: Mental Status: mental status grossly normal Affect: normal affect Attitude: cooperative MDM - Back Pain/Injury MDM Narrative Medical decision making narrative: patient is a 74-year-old male with right lower back pain for the past few hours. No injuries. Patient just desires pain control at this time. We will give Toradol in the emergency room and further medications for discharge. He drove himself to the emergency room so we cannot get narcotics at this time. No injuries and no x-ray needed at this time. Discharge Plan Discharge Clinical Impression: Lumbago Qualifiers: Chronicity: acute Back pain laterality: right Sciatica presence: without sciatica Qualified Code(s): M54.50 - Low back pain, unspecified Patient Disposition: Home, Self-Care Condition: Stable Instructions: Acute Low Back Pain (ED) Patient Language: Trinidadian Prescriptions: New hydrocodone-acetaminophen 10-325 mg tablet 1 tablet PO Q8H PRN (Reason: pain) Qty: 20 0RF Rx Instructions: 1/2-1 tabs No Action levothyroxine 137 mcg tablet 137 mcg PO DAILY atorvastatin 80 mg tablet 80 mg PO HS levetiracetam 500 mg tablet 500 mg PO DAILY amlodipine 10 mg tablet 10 mg PO DAILY metoprolol tartrate 50 mg tablet 50 mg PO BID hydrocodone-acetaminophen [[place]] 5-325 mg tablet 1 tablet PO Q6H PRN (Reason: pain) Qty: 14 0RF aspirin 325 mg tablet 325 mg PO DAILY telmisartan-hydrochlorothiazid 80-12.5 mg tablet 1 tablet PO DAILY valacyclovir 1 gram tablet 1,000 mg PO DAILY gabapentin 300 mg capsule 300 mg PO DAILY alprazolam [Xanax] 0.25 mg tablet 0.25 mg PO QHS PRN Follow-up/Referrals: Abundio Howard MD [Primary Care Provider] - Time of Disposition: 17:05
[2024-11-03] MEDS: KETOROLAC (*BKC) 60 MG/2 ML VIAL IM (16:45)
== END 2024-11-03 17:15 | disposition home or self-care (01) ==
PROVIDERS: Emergency Provider Emergency Medicine; PCP Internal Medicine
DX: M54.50 Low back pain, unspecified (principal); I10 Essential (primary) hypertension; E78.00 Pure hypercholesterolemia, unspecified; G40.909 Epilepsy, unspecified, not intractable, without status epilepticus; Z85.850 Personal history of malignant neoplasm of thyroid; Z85.46 Personal history of malignant neoplasm of prostate; Z86.73 Personal history of transient ischemic attack (TIA), and cerebral infarction without residual deficits; Z87.891 Personal history of nicotine dependence
CPT/HCPCS: 96372; 99283; J1885

== ENCOUNTER 2024-11-16 14:13 | Outpatient (CLI) | payer MEDICARE, SELFPAY | END 2024-11-16 14:14 | disposition home or self-care (01) | LOC: CHSLAB 14:15 | PROVIDERS: PCP Internal Medicine; Visit Provider Internal Medicine | DX: L82.1 Other seborrheic keratosis (principal) | CPT/HCPCS: 88305 ==

== ENCOUNTER 2024-12-03 07:11 | Outpatient (CLI) | payer MEDICARE, SELFPAY ==
[2024-12-03 07:22] LABS: Hematocrit 40.7 % (37.0-46.0); Hemoglobin 14.1 g/dL (12.4-15.3); Mean Corpuscular HGB Conc 34.6 g/dL (32-36); Mean Corpuscular Hemoglobin 30.9 pg (27.0-31.0); Mean Corpuscular Volume 89.1 fL (78.0-102.0); Mean Platelet Volume 8.6 fl (8.7-11.0); Platelet Count Result 205 K/mm3 (150-420); Red Blood Count 4.57 M/mm3 (4.70-6.10); Red Cell Distribution Width 11.6 % (11.6-14.4); White Blood Count 7.3 K/mm3 (4.8-10.8)
[2024-12-03 07:47] LABS: Hemoglobin A1C 5.8 % (<5.7)
[2024-12-03 08:36] LABS: Alanine Aminotransferase 41 U/L (16-63); Albumin Level 3.7 g/dL (3.4-5.0); Alkaline Phosphatase 131 U/L (46-116); Anion Gap 10 mmol/L (4-12); Aspartate Amino Transferase 28 U/L (15-37); Bilirubin,Total 0.7 mg/dL (0.00-1.00); Blood Urea Nitrogen 17 mg/dL (7-18); Calcium 8.7 mg/dL (8.5-10.1); Carbon Dioxide 31 mmol/L (21-32); Chloride 103 mmol/L (98-108); Cholesterol 160 mg/dL (0-200); Estimated Glomerular Filt Rate > 60; Glucose 126 mg/dL (70-99); HDL Direct 56 mg/dL (40-60); LDL Cholesterol Calculated 90 mg/dL (<130); Osmolality Calculated 301 mOsm/kg (285-295); Potassium 3.8 mmol/L (3.5-5.1); Sodium 144 mmol/L (136-145); Total Protein 6.4 g/dL (6.4-8.2); Triglycerides 70 mg/dL (0-150)
[2024-12-03 08:37] LABS: Prostate Specific Antigen < 0.1 ng/mL (< OR = 4.0)
== END 2024-12-03 07:12 | disposition home or self-care (01) ==
LOC: CHSLAB 07:13
PROVIDERS: PCP Internal Medicine; Visit Provider Internal Medicine
DX: E78.5 Hyperlipidemia, unspecified (principal); I10 Essential (primary) hypertension; C61 Malignant neoplasm of prostate; R73.03 Prediabetes
CPT/HCPCS: 36415; 80053; 80061; 83036; 84153; 85027

== ENCOUNTER 2025-04-30 07:03 | Outpatient (CLI) | payer MEDICARE, SELFPAY ==
[2025-04-30 07:18] LABS: Basophils Absolute Auto 0.02 K/mm3 (0.00-0.10); Basophils Percent Auto 0.3 % (0.0-1.0); Eosinophils Percent Auto 2.7 % (1.0-6.0); Hematocrit 41.8 % (37.0-46.0); Hemoglobin 14.4 g/dL (12.4-15.3); Immature Granulocyte Absolute 0.02 K/mm3 (0.00-0.00); Immature Granulocyte Percent A 0.3 % (0.0-0.0); Lymphocytes Absolute Auto 0.84 K/mm3 (1.10-4.50); Lymphocytes Percent Auto 11.2 % (18.0-42.0); Mean Corpuscular HGB Conc 34.4 g/dL (32-36); Mean Corpuscular Hemoglobin 31.1 pg (27.0-31.0); Mean Corpuscular Volume 90.3 fL (78.0-102.0); Monocytes Absolute Auto 0.79 K/mm3 (0.10-0.90); Monocytes Percent Auto 10.6 % (2.0-11.0); Neutrophils Absolute Auto 5.61 K/mm3 (1.70-7.20); Neutrophils Percent Auto 74.9 % (50.0-70.0); Platelet Count Result 205 K/mm3 (150-420); Red Blood Count 4.63 M/mm3 (4.70-6.10); Red Cell Distribution Width 11.9 % (11.6-14.4); White Blood Count 7.5 K/mm3 (4.8-10.8)
[2025-04-30 07:53] LABS: Alanine Aminotransferase 42 U/L (6-50); Albumin Level 4.1 g/dL (3.5-5.1); Alkaline Phosphatase 114 U/L (38-126); Anion Gap 3 mmol/L (4-12); Aspartate Amino Transferase 44 U/L (17-59); Blood Urea Nitrogen 15 mg/dL (9-20); Carbon Dioxide 33 mmol/L (22-30); Chloride 102 mmol/L (98-107); Cholesterol 163 mg/dL (0-200); Estimated Glomerular Filt Rate > 60; Glucose 135 mg/dL (65-110); Osmolality Calculated 288 mOsm/kg (285-295); Potassium 4.1 mmol/L (3.4-5.0); Sodium 138 mmol/L (137-145); Total Protein 6.4 g/dL (6.3-8.2); Triglycerides 111 mg/dL (<150)
[2025-04-30 08:00] LABS: Hemoglobin A1C 5.9 % (<5.7)
[2025-04-30 08:23] LABS: Prostate Specific Antigen < 0.1 ng/mL (< OR = 4.0)
[2025-04-30 09:27] LABS: HDL Direct 56 mg/dL; LDL Cholesterol Calculated 85 mg/dL (<130)
== END 2025-04-30 07:04 | disposition home or self-care (01) ==
LOC: CHSLAB 07:05
PROVIDERS: PCP Internal Medicine; Visit Provider Internal Medicine
DX: I10 Essential (primary) hypertension (principal); R97.20 Elevated prostate specific antigen [PSA]; E78.5 Hyperlipidemia, unspecified; R73.03 Prediabetes
CPT/HCPCS: 36415; 80053; 80061; 83036; 84153; 85025

== ENCOUNTER 2025-05-09 10:22 | Outpatient (CLI) | payer MEDICARE, SELFPAY ==
--- OUTSIDE RECORDS SUMMARY | 2025-05-09 10:29 | XMS_ITS | Clinical Summary ---
Author Organization [facility] Address [address], [facility] [place] [address] Phone Care Team Providers Care News Camera Person Name Role Phone Hong Galdamez MD Primary Care Provider [phone] Allergies No known active allergies Medications aspirin 325 MG Tablet Take 325 mg by mouth daily. Active levothyroxine (SYNTHROID) 137 MCG Tablet Take 137 mcg by mouth daily. Active atorvastatin (LIPITOR) 80 MG Tablet Take 80 mg by mouth every evening. Active metoprolol tartrate (LOPRESSOR) 50 MG Tablet Take 50 mg by mouth 2 times daily. Active levETIRAcetam (KEPPRA) 500 MG Tablet Take 500 mg by mouth 2 times daily. Active amLODIPine (NORVASC) 10 MG Tablet Take 10 mg by mouth daily. Active losartan-hydroch lorothiazide (HYZAAR) 100-12.5 MG Tablet Take 1 Tab by mouth daily. Active Multiple Vitamins-Mineral s (MULTIVITAMIN PO) Take 1 Tab by mouth daily. Active Fexofenadine-Pse udoephedrine (SUE-D 24 HOUR PO) Take 1 Tab by mouth daily. Active Family History Medical History Relation Name Comments Cancer Father Melanoma sarcom a Heart Attack Mother Relation Name Status Comments Father Mother Social History Tobacco Use Types Packs/Day Years Used Date Smoking Tobacco: Former Cigarettes 1 20 0 12/17/1968 - 12/17/1988 Smokeless Tobacco: Never Comments:Smoked for 20 yrs 2 pks/day. Quit 1988 Alcohol Use Standard Drinks/Week Comments Yes 7 (1 standard drink = 0.6 oz pur e alcohol) Sex and Gender Information Value Date Recorded Sex Assigned at Not on file Legal Sex Male 10:14 PM CDT Gender Identity Not on file Sexual Orientation Not on file Occupation Industry Job Start Date Job End Date Retired from [employer] Not on file Not on file Not o n file Last Filed Vital Signs Vital Sign Reading Time Taken Comments Blood Pressure 117/52 07/26/2017 9:29 AM CDT Pulse 80 07/26/2017 7:25 AM CDT Temperature 36 C (96.8 F) 07/26/2017 9:29 AM CDT Respiratory Rate 13 07/26/2017 9:29 AM CDT Oxygen Saturation 91% 07/26/2017 9:29 AM CDT Inhaled Oxygen Concentration - - Weight 88.5 kg (195 lb) 07/26/2017 7:25 AM CDT Height 172.7 cm (5' 8) 07/26/2017 7:25 AM CDT Body Mass Index 29.65 07/26/2017 7:25 AM CDT Plan of Treatment Health Maintenance Due Date Last Done Comments Hepatitis C Virus (HCV) Screening 1950 TdaP Immunization 1950 Cologuard 01/16/2000 Immunochemical Fecal Occult Blood 01/16/2000 Pneumococcal Immunization (5 0+ years) (1 of 1 - PCV) 01/16/2000 Zoster Immunization (1 of 2) 01/16/2000 Colonoscopy 07/26/2022 07/26/2017 Colorectal Cancer Screening 07/26/2022 Influenza Immunization (#1) 2024 SARS-COV-2 Immunization ( - 2023-25 season) 2024 Respiratory Syncytial Virus (RSV) Immunization (Adult) (1 - 1-dose 75+ series) 2025 Hepatitis B Immunization Aged Out No longer eligible based on patient's age to complete this topic Meningococcal Immunization (ACWY) Aged Out No longer eligible based on patient's age to complete this topic Rotavirus Immunization Aged Out No lo nger eligible based on patient's age to complete this topic Insurance MEDICARE Care Teams News Camera Person Relationship Specialty Start Date End Date Hong Galdamez MD [address] [place] [id number] PCP - General General Surgery 01/17/17
--- OUTSIDE RECORDS SUMMARY | 2025-05-09 10:29 | XMS_ITS | Referral Summary ---
Author Organization 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 4 Active levETIRAcetam (KEPPRA) 500 mg tablet Take 1 tablet (500 mg total) by mouth 2 times daily Take one tablet twice daily as directed. Active fexofenadine (SUE) 180 mg tablet Take 1 tablet (180 mg total) by mouth conservator artifacts before breakfast 4 Active amLODIPine (NORVASC) 10 mg tabletIndicatio ns:hypertension Take 1 tablet (10 mg total) by mouth conservator artifacts before breakfast Active mv,Ca,min-iron- FA-lycopene 8 mg iron- 200 mcg-600 mcg tabletIndicatio ns:stop 5 days before surgery Take 1 tablet by mouth conservator artifacts before breakfast Active metoprolol (LOPRESSOR) 50 mg tablet Take 1 tablet (50 mg total) by mouth 2 (two) times a day Active glucosamine/cho ndr barrios A sod (OSTEO BI-FLEX ORAL) Take 25 mg by mouth conservator artifacts before breakfast Active UNABLE TO FIND Med Name:Brandoncol 2 gummies daily Active telmisartan-hyd rochlorothiazid (MICARDIS HCT) 80-12.5 mg per tablet Take 1 tablet by mouth daily Active levothyroxine (SYNTHROID) 125 mcg tablet Take 1 tablet (125 mcg total) by mouth conservator artifacts before breakfast Active aspirin 81 mg enteric coated tablet Take 1 tablet (81 mg total) by mouth daily Active Active Problems Problem Noted Date Diagnosed Date Personal history of colonic polyps 01/10/2023 Overview (01/10/2023): Added automatically from request for surgery [id number] Prostate cancer 10/19/2021 Overview (10/19/2021): Added automatically from request for surgery [id number] Tendon rupture, traumatic. 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 r disease 01/21/2017 Overview (02/17/2018): Description: right superior quadrantanopia Cerebral atherosclerosis 10/17/2015 Thyroid nodule 02/12/2015 Isolated cervical dystonia 09/06/2014 Essential hypertension 09/06/2014 Hyperlipidemia 09/06/2014 Social History Tobacco Use Types Packs/Day Years Used Date Smoking Tobacco: Former Cigarettes 2 21.1 1 968 - 12/17/1988 Smokeless Tobacco: Former Chew Quit: 1988 Tobacco Cessation:Counseling Given: Not Answered Alcohol Use Standard Drinks/Week Comments Yes 2 (1 standard drink = 0.6 oz pur e alcohol) occasionally--social AUDIT-C Answer Date Recorded Q1: How often do you have a drink containing alc ohol? 2-3 times a week 05/18/2023 Q2: How many drinks containi ng alcohol do you have on a typical day when you are drinking? 1 or 2 05/18/2023 Q3: How often do you have si x or more drinks on one occasion? Weekly 05/18/2023 Personal Safety Answer Date Recorded Have you ever been in or are you currently in a harmful physical or emotional relationship or is someone making you feel afraid or unsafe? 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 Gender Identity Not on file Sexual Orientation Not on file Last Filed Vital Signs Vital Sign Reading Time Taken Comments Blood Pressure 159/71 04/12/2025 12:00 PM CDT Pulse 80 04/12/2025 12:00 PM CDT Temperature 36.7 C (98 F) 05/18/2023 11:27 AM CDT Respiratory Rate 18 05/18/2023 11:27 AM CDT Oxygen Saturation 98% 05/18/2023 11:27 AM CDT Inhaled Oxygen Concentration - - Weight 91.6 kg (202 lb) 04/12/2025 12:00 PM CDT Height 170.2 cm (5' 7) 04/12/2025 12:00 PM CDT Body Mass Index 31.64 04/12/2025 12:00 PM CDT Plan of Treatment Not on file Medical Devices Implanted Type Area Product Marketing Director Device Identifier Shelf Expiration Date Model / Serial / Lot Hardware Right: Knee Procedures Procedure Name Priority Date/Time Associated Diagnosis Comments COLONOSCOPY 05/18/2023 9:27 AM CDT SERUM HEPATITIS PANEL Routine 07/09/2014 2:16 AM CDT from Last 3 Months or Most Recently Relevant to Health Maintenance Results * COLONOSCOPY (05/18/2023 9:27 AM CDT) Anatomical Region Laterality Modality Other Narrative Procedure Note Ashleigh Wright MD - 05/18/2023 9:27 AM CDT [facility] Patient Name: Rai Stover Procedure Date: 05/18/2023 9:27 AM Date of : 1950 Admit Type: Outpatient Age: 73 Gender: Male Attending MD: Ashleigh Wright M.D. Room: [facility] ENDOSCOPY ROOM 1 Note Status: Finalized Patient Profile: This is a 73 year old male. History of colonpolyps. No family history of colon cancer. Procedure: Colonoscopy Indications: High risk colon cancer surveillance: Personalhistory of colonic polyps, Last colonoscopy within the past5 years Referring MD: Abundio Howard M.D. Providers: Ashleigh Wright M.D. Impression: - Two 3 to 4 mm polyps in the ascending colon andin the cecum, removed with a jumbo cold forceps.Resected and retrieved. - Four 3 to 6 mm polyps in the descending colon andin the transverse colon, removed with a jumbo cold forceps. Resected and retrieved. - One 4 mm polyp in the sigmoid colon, removed witha jumbo cold forceps. Resected and retrieved. - Diverticulosis in the sigmoid colon. - Internal hemorrhoids. Recommendation: - Await pathology results. - Repeat colonoscopy in 3 years for surveillance. - Continue present medications. Medicines: Monitored Anesthesia Care Complications: No immediate complications. Estimated Blood Loss: Estimated blood loss: none. Procedure: Pre-Anesthesia Assessment: - Prior to the procedure, a History and Physicalwas performed, and patient medications and allergieswere reviewed. The patient's tolerance of previous anesthesia was also reviewed. The risks andbenefits of the procedure and the sedation options and risks were discussed with the patient. All questions were answered, and informed consent was obtained. Prior Anticoagulants: The patient has taken noanticoagulant or antiplatelet agents. ASA Grade Assessment: II -A patient with mild systemic disease. After reviewing the risks and benefits, the patient was deemed in satisfactory condition to undergo the procedure. The benefits, risks and alternatives of theprocedure and sedation were discussed and informed consentwas obtained. All questions were answered. Please referto the signed informed consent document in the medical record. The bowel preparation used was Miralax via split dose instruction. The bowel preparation usedwas bisacodyl tablets via split dose instruction. The scope was passed under direct vision. The Pediatric Colonoscope [id number]-H190L [id number] was introducedthrough the anus and advanced to the the cecum, identifiedby appendiceal orifice and ileocecal valve. Thequality of the bowel preparation was good. Bowel prep was administered using a split dose. Findings: The perianal and digital rectal examinations were normal. The appendiceal orifice appeared normal. Two semi-sessile polyps were found in the ascending colon and cecum.The polyps were 3 to 4 mm in size. These polyps were removed with a jumbo cold forceps. Resection and retrieval were complete. Four semi-sessile polyps were found in the descending colon and transverse colon. The polyps were 3 to 6 mm in size. These polypswere removed with a jumbo cold forceps. Resection and retrieval werecomplete. A 4 mm polyp was found in the sigmoid colon. The polyp was sessile.The polyp was removed with a jumbo cold forceps. Resection and retrieval were complete. Many small-mouthed diverticula were found in the sigmoid colon. Internal hemorrhoids were found during retroflexion. The hemorrhoids were medium-sized. Electronically signed by Ashleigh Wright M.D. Ashleigh Wright M.D. 05/18/2023 11:31:47 AM Number of Addenda: 0 Note Initiated On: 05/18/2023 9:27 AM Procedure Code(s): --- Professional --- 61145, Colonoscopy, flexible; with biopsy, single or multiple Diagnosis Code(s): --- Professional --- Z86.010, Personal history of colonic polyps K64.8, Other hemorrhoids D12.2, Benign neoplasm of ascending colon D12.0, Benign neoplasm of cecum D12.4, Benign neoplasm of descending colon D12.3, Benign neoplasm of transverse colon (hepatic flexure orsplenic flexure) D12.5, Benign neoplasm of sigmoid colon K57.30, Diverticulosis of large intestine without perforation orabscess without bleeding CPT copyright 2020 [employer]. All rights reserved. The codes documented in this report are preliminary and upon gluten settling tender reviewmay be revised to meet current compliance requirements. Recognized by the [employer] for promoting quality in endoscopy Ashleigh Wright MD ENDOSCOPY PROCEDURES Final Result * Serum Hepatitis panel (07/09/2014 2:16 AM CDT) HBV surface ag Negative NEG HISTO RICAL RESULTS HCV ab Negative NEG HISTORICAL RESULTS Comment: Interpretive Data If confirmation is required, call Laboratory Customer Service to request sample to be sent to [facility] for Hepatitis C Virus (HCV) RNA Detection and Quantitation by Real-Time Reverse Scrummaster-PCR (RT-PCR). Current interpretive data was last revised on 2012 HBV core ab, IgM Negative NEG HIS TORICAL RESULTS Comment: Interpretive Data If test is reported as Equivocal, new sample should be drawn for testing. Current interpretive data was last revised on 2008. HAV ab, IgM Negative NEG HISTORIC AL RESULTS Comment: Interpretive Data If test is reported as Equivocal, new sample should be drawn in two weeks for testing. Current interpretive data was last revised on 2008. Serum 07/09/2014 2:16 AM CDT Everardo Herrmann MD PhD LAB BLOOD ORDER MISBAH Final Result HISTORICAL RESULTS from Last 3 Months or Most Recently Relevant to Health Maintenance Insurance UHC MEDICARE ADVANTAGE [facility] MEDICARE ADVANTAGE [facility] MEDICARE ADVANTAGE Advance Directives For more information, please contact: [phone] * Full Code (Latest Code Status on File) Date Activated Date Inactivated Comments 05/18/2023 10:19 AM 05/18/2023 4:09 PM * Full Code Date Activated Date Inactivated Comments 05/18/2023 10:19 AM 05/18/2023 10:19 AM * Full Code Date Activated Date Inactivated Comments 11/24/2021 2:01 PM 11/25/2021 7:04 PM Care Teams Wind Energy Project Manager Relationship Specialty Start Date End Date Abundio Howard MD PCP - General Internal Medicine 06/13/19
--- OUTSIDE RECORDS SUMMARY | 2025-05-09 10:29 | XMS_ITS | Continuity of Care Document ---
Author Organization [facility] [place] Address [address] [place] [address] Phone Care Team Providers Care [employer] French Teacher Name Role Phone Deng Mao MD Unavailable Unavailable Allergies, Adverse Reactions, Alerts Substance Reaction Status Criticality No Known Allergies Resolved No Inform ation Medications Medication Instructions Dosage Effective Dates (start - stop) Status Comments levothyroxine 137 mcg tablet - Active LOSARTAN POTASSIUM (unknown strength) take 1 tablet by oral route every day Not Available - Active clopidogrel 75 mg tablet - Activ e atorvastatin 80 mg tablet - Active Metoprolol Tartrate 50 mg Tab - Active Amlodipine 10 mg Tab - Active hydrochlorothiazide 25 mg tablet - No Longer Active Procedures Procedure Date No Charge Refraction Visual Field Examination(s) Eye Exam & Treatment Eye Exam & Treatment Eye Exam & Treatment Eye Exam & Treatment Office/outpatient Visit, [facility] Office/outpatient Visit, New Advance Directives Directive Yes / No Effective Date File Name No Information Encounters Encounter Description Practice Location Reason(s) For Visit Diagnoses Date Provider Providers Copied on Encounter [facility], [address], [place], [place], [id number], tel:[phone] SEC [place] Professional Complete Exam (chief complaint) Age-related nuclear cataract, bilateralQuadr antanopia, rightQuadranta nopia of left eye 6 Mayco Vilchis. [address], [place], [place], [address], [place]. tel:[phone] Referring Provider: Dengeduardo Anglin, [address], [place], [address] . tel:[phone] [facility], [address], [place], [place], [address], [place] tel:[phone] SEC Carlyle HARDY Professional Complete Eye Exam (chief complaint) SENILE NUCLEAR CATARACTDisord ers of vision pathways associated w/ vascular disorders 6 4 Mayco Vilchis. [address], [place], [place], [address], [place]. tel:[phone] Referring Provider: Deng Anglin, [address], [place], [address] . tel:[phone] [facility], [address], [place], [place], [address], [place] tel:[phone] SEC Carlyle HARDY Professional SENILE NUCLEAR CATARACT 2 Mayco Vilchis. [address] [place], [address], [place]. tel:[phone] Referring Provider: Deng Anglin, [address], [place], [address] . tel:[phone] [facility], [address], [place], [place], [address], [place] tel:[phone] SEC Carlyle HARDY Professional No Information 4201 1 Mayco Vilchis. [address] [place], [address], [place]. tel:[phone] Referring Provider: Deng Anglin, [address] [place], [address] . tel:[phone] Office/outpa tient Visit, [facility], [address], [place], [place], [address], tel:[phone] SEC [place] Professional No Information Apr-0 7-200 9 Wankdotty Vilchis. [address], [place], [place], [address], . tel:[phone] Office/outpa tient Visit, [facility], [address], [place], [place], [address], tel:[phone] SEC [place] Professional No Information May-0 2-200 7 Wankdotty Deng. [address], [facility] [place], [address], . tel:[phone] Family History Family Member Type Diagnosis Age At Onset Problem (finding) Family history of Diabe giovanni mellitus Payers Payer name Insurance type Covered democrat ID Authoriza tion(s) [place] [id number] [facility] Commercial CI [id number] Social History Type Description Quantity Date Captured Comments Alcohol Use Details Unknown Caffeine Use Details Unknown Tobacco Use Status No Information Smoking Status No Information Sex Male Chief Complaint And Reason For Visit From encounter dated '06/14/2016 10:00'. Complete Exam (chief complaint). Description: The 66 year old male presents for Complete Exam It affects OU. Pt has hx of Stroke (2014), Thyroid cancer (2015). Pt states that he has noticed a blurry spot OU when playing golf, he says that he noticed it aprox 2-4 months ago. Pt states VA OU is otherwise stable. Pt denies flashes, reports floater OD. Reason For Referral Reason For Referral No Information History Of Present Illness Encounter Date Complaint History Of Prese nt Illness Complete Exam The 66 year old male presents for Complete Exam It affects OU. Pt has hx of Stroke (2014), Thyroid cancer (2015). Pt states that he has noticed a blurry spot OU when playing golf, he says that he noticed it aprox 2-4 months ago. Pt states VA OU is otherwise stable. Pt denies flashes, reports floater OD. Complete Eye Exam The 64 year ol d male presents for Complete Eye Exam. Patient Hx Cataract OU and had a Stroke June 2014. Patient reports his Stroke in June was in the occipital lobe and affected his vision. Patient was unable to come in due to the other therapy he was having. Patient states that most, if not all of his vision has returned but has a hard time decifering words and letters at times. Patient wants to find out if it is because of his vision or just an affect from the Stroke. Patient does not use any eye drops. Functional Status Date Functional Assessmen t No Information Instructions Date Instruction Additional Infor jihan Impression/Plan - Di scussed diagnosis in detail with patient. Discussed cataracts with pt and treatment options. pt also understands at this time vision does not qualify to have CE with insurance coverage. No change in visual field loss OU post stroke. Return to clinic in 1 year for complete exam or sooner with any problems. Age-related nuclear cataract, bilateral - Educational material given Related to Age-related nuclear cataract, bilateral Follow up - Return i n 1 year with Deng Mao M.D. for Complete Exam. - Return in 1 year Related to Se e list of assessments above - Discussed visual d efect in right superior quadrant OU from stroke. Visual defect is superior and in a less noticeable area. Explained broken bloood vessels can happen more often from blood thinners. RTC 1 yr Related to See list of assessments above - Return in 1 year Related to Se e list of assessments above - 2 year complete Related to Cat aract, Nuclear Sclerosis Cataract, Nuclear Sc lerosis, OU - established, stable - vision not affected - will continue to monitor - Early cataract(s) accounts for patient's complaints. No treatment currently recommended due to VA level, Patient will monitor vision changes and contact us with any decrease in vision, will re-evaluate cataract on return visit. Related to Cataract, Nuclear Sclerosis Assessments Type Assessment Date assessment Age-related nuclear cataract, bi lateral assessment Quadrantanopia, right assessment Quadrantanopia of left eye Patient Care Teams Name Effective Dates (start - stop) Status Members No Information
--- OUTSIDE RECORDS SUMMARY | 2025-05-09 10:29 | XMS_ITS | Clinical Summary ---
Author Organization [facility] Address [address] [place] [address] Care Team Providers Care Ldr Nurse Name Role Phone Abundio Howard MD Primary Care Provider [phone] Allergies No known active allergies Medications atorvastatin (LIPITOR) 80 mg tablet Take 1 tablet (80 mg total) by mouth nightly Take one tablet daily. 4 Active levETIRAcetam (KEPPRA) 500 mg tablet Take 1 tablet (500 mg total) by mouth 2 times daily Take one tablet twice daily as directed. Active fexofenadine (SUE) 180 mg tablet Take 1 tablet (180 mg total) by mouth finishing powder press operator before breakfast 4 Active amLODIPine (NORVASC) 10 mg tabletIndicatio ns:hypertension Take 1 tablet (10 mg total) by mouth finishing powder press operator before breakfast Active mv,Ca,min-iron- FA-lycopene 8 mg iron- 200 mcg-600 mcg tabletIndicatio ns:stop 5 days before surgery Take 1 tablet by mouth finishing powder press operator before breakfast Active metoprolol (LOPRESSOR) 50 mg tablet Take 1 tablet (50 mg total) by mouth 2 (two) times a day Active glucosamine/cho ndr barrios A sod (OSTEO BI-FLEX ORAL) Take 25 mg by mouth finishing powder press operator before breakfast Active UNABLE TO FIND Med Name:Sambucol 2 gummies daily Active telmisartan-hyd rochlorothiazid (MICARDIS HCT) 80-12.5 mg per tablet Take 1 tablet by mouth daily Active levothyroxine (SYNTHROID) 125 mcg tablet Take 1 tablet (125 mcg total) by mouth finishing powder press operator before breakfast Active aspirin 81 mg enteric coated tablet Take 1 tablet (81 mg total) by mouth daily Active Active Problems Problem Noted Date Diagnosed Date Personal history of colonic polyps 01/10/2023 Overview (01/10/2023): Added automatically from request for surgery [id number] Prostate cancer 10/19/2021 Overview (10/19/2021): Added automatically from request for surgery [id number] Tendon rupture, traumatic. 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 (Primary Dx); Seizure disorder as sequela of cerebrovascular accident (HCC); Essential hypertension; Hyperlipidemia, unspecified hyperlipidemia type; Cerebral atherosclerosis; Abnormal movement of jaw from Last 3 Months Surgical History Surgery Date Site/Laterality Comments IR FINE NEEDLE ASPIRATION W IMAGE GUIDANCE 03/19/2015 N/A IR FINE NEEDLE ASPIRATION W IMAGE GUIDANCE 03/19/2015 N/A IR FINE NEEDLE ASPIRATION W IMAGE GUIDANCE 03/19/2015 N/A THYROID SURGERY 11/07/2012 - 11/06/2013 PROSTATE BIOPSY \ KNEE ARTHROSCOPY, MEDIAL PATELLO FEMORAL LIGAMENT REPAIR Right COLONOSCOPY 5 years ago at [facility] COLONOSCOPY 05/18/2023 Medical History Medical History Date Comments Erectile dysfunction Hypertension well controlled with meds Hyperlipidemia well controlled with meds Seizures (HCC) 2016 only had one, po st Stroke. well controlled with meds Stroke (HCC) 2012 Right eye lost p eripheral upper quadrant vision. no weakness or limitation from stoke Claustrophobia Arthritis limited movement up, down and side to side Cataract early stages. 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 Gender Identity Not on file Sexual Orientation Not on file Obstetrics History Last Filed Vital Signs Vital Sign Reading [...] 04/12/2025 12:00 PM CDT Plan of Treatment Health Maintenance Due Date Last Done Comments Depression Screening 1950 Hepatitis B Screening 01/16/1968 Zoster Vaccine (1 of 2) 01/16/2000 Abdominal Aortic Aneurysm (AAA) Screen 2015 Well Visit 65+ 2015 Pneumococcal vaccine 65+ (2 of 2 - PPSV23) 09/19/2020 09/19/2019 Fall Risk Assessment 11/25/2022 11/25/2021 DTaP/Tdap/Td Vaccine (2 - Td or Tdap) 06/27/2025 Influenza Vaccine (#1) 2025 09/19/2019 Colon Cancer Screening-Colonoscopy 05/18/20332022 Hepatitis C Screening Completed 07/09/2014 Colon Cancer Screening-CT Colonography Discontinued Colon Cancer Screening-DNA Stool Discontinued 05/18/20 Colon Cancer Screening-FIT Discontinued 05/18/2023 Colon Cancer Screening-Sigmoidoscopy Discontinued 05/07 Medical Devices Implanted Type Area Lunch Truck Driver Device Identifier Shelf Expiration Date Model / [...] Wright MD - 05/18/2023 9:27 AM CDT [facility] Patient Name: Rai Stover Procedure Date: 05/18/2023 9:27 AM Date of : 1950 Admit Type: Outpatient Age: 73 Gender: Male Attending MD: Ashleigh Wright M.D. Room: [facility] ENDOSCOPY ROOM 1 Note Status: Finalized Patient [...] under direct vision. The Pediatric Colonoscope [id number] was introducedthrough the anus and advanced to [...] 9:27 AM Procedure Code(s): --- Professional --- 21494, Colonoscopy, flexible; with biopsy, single or multiple [...] perforation orabscess without bleeding CPT copyright 2020 [employer]. All rights reserved. The codes documented in this report are preliminary and upon handbag frames inspector reviewmay be revised to meet current compliance requirements. Recognized by the [employer] for promoting quality in endoscopy Ashleigh Wright MD ENDOSCOPY PROCEDURES Final Result * Serum Hepatitis panel (07/09/2014 2:16 AM CDT) HBV surface ag Negative NEG HISTO RICAL RESULTS HCV ab Negative NEG HISTORICAL RESULTS Comment: Interpretive Data If confirmation is required, call Laboratory Customer Service to request sample to be sent to [facility] for Hepatitis C Virus (HCV) RNA Detection and Quantitation by Real-Time Reverse Metrology Technician-PCR (RT-PCR). Current interpretive data was last revised [...] to Health Maintenance Insurance UHC MEDICARE ADVANTAGE UHC MEDICARE ADVANTAGE UHC MEDICARE ADVANTAGE Advance Directives For more information, please contact: [phone] * Full Code (Latest Code Status on File) Date Activated Date Inactivated Comments 05/18/2023 10:19 AM 05/18/2023 4:09 PM * Full Code Date Activated Date Inactivated Comments 05/18/2023 10:19 AM 05/18/2023 10:19 AM * Full Code Date Activated Date Inactivated Comments 11/24/2021 2:01 PM 11/25/2021 7:04 PM Care Teams Ldr Nurse Relationship Specialty Start Date End Date Abundio Howard MD PCP - General Internal Medicine 06/13/19
--- OUTSIDE RECORDS SUMMARY | 2025-05-09 10:29 | XMS_ITS | Encounter Summary ---
Author Organization [facility] Healthcare Address [address] [place] [address] Care Team Providers Care Brazer Helper Induction Name Role Phone Abundio Howard MD Primary Care Provider [phone] Encounter Details Date Type Department Care Team (Late st Contact Info) Description 09/28/2019 Documentation 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 Gender Identity Not on file Sexual Orientation Not on file documented as of this encounter Last Filed Vital Signs Vital Sign Reading Time Taken Comments Blood Pressure - - Pulse - - Temperature - - Respiratory Rate - - Oxygen Saturation - - Inhaled Oxygen Concentration - - Weight 88.5 kg (195 lb) 09/28/2019 8:55 AM POULTRY SERVICE TECHNICIAN Height 172.7 cm (5' 8) 09/28/2019 8:55 AM POULTRY SERVICE TECHNICIAN Body Mass Index 29.65 09/28/2019 8:55 AM POULTRY SERVICE TECHNICIAN documented in this encounter Miscellaneous Notes * Pre-Procedure Instructions - Damari Knapp RN - 09/28/2019 8:[address] Virgen here to evaluate pt's airway for surgery. Dr. Virgen explained to pt. That he did not feelthat the pt. Could be safely done at the [facility] because of pt's limited movement of neck. EE TRY SERVICE TECHNICIAN documented in this encounter Plan of Treatment Not on file documented as of this encounter Visit Diagnoses Not on filedocumented in this encounter Discontinued Medications Medication Sig Discontinue Reason Start Date End Da te [id number]-sasi-bul9-C-man g-bosw 750 mg-644 mg- 30 mg-1 mg tablet Take 1 tablet by mouth daily Alternate therapy 09/28/2019 losartan-hydroCHLOROthia zide (HYZAAR) 100-12.5 mg per tablet Take by mouth daily Alternate therapy 09/28/2019 documented as of this encounter Historical Medications * This list may reflect changes made after this encounter. UNABLE TO FIND Med Name:Sambucol 2 gummies daily glucosamine/kapil dr sophie Anglin sod (OSTEO BI-FLEX ORAL) Take 25 mg by mouth data compiler before breakfast telmisartan-hydr ochlorothiazid (MICARDIS HCT) 40-12.5 mg per tablet Take 1 tablet by mouth data compiler before breakfast 1 added in this encounter Care Teams Brazer Helper Induction Relationship Specialty Start Date End Date Abundio Howard MD PCP - General Internal Medicine 06/13/19 documented as of this encounter
[2025-05-09 11:18] LABS: CRP. 0.9 mg/dL (<1.0)
[2025-05-09 11:32] LABS: Free T4 Free Thyroxine. 1.30 ng/dL (0.78-2.19)
[2025-05-09 11:46] LABS: Thyroid Stimulating Hormone 0.360 uIU/mL (0.465-4.680)
[2025-05-09 12:00] LABS: Free T3 4.62 pg/mL (2.18-3.98)
== END 2025-05-09 10:23 | disposition home or self-care (01) ==
LOC: CHSLAB 10:24
PROVIDERS: PCP Internal Medicine; Visit Provider Internal Medicine
DX: E03.9 Hypothyroidism, unspecified (principal); M13.0 Polyarthritis, unspecified
CPT/HCPCS: 36415; 84439; 84443; 84481; 86140

== ENCOUNTER 2025-06-27 10:12 | Outpatient (CLI) | payer MEDICARE, SELFPAY ==
--- NOTE | ~2025-06-27 | XR_ITS ---
XR foot LT min 3V 06/27/2025 10:33 Indication: Left foot pain Procedure: 4 views left foot Comparison: No prior studies for comparison. Findings: There is polyarticular osteoarthritis of the left foot and ankle. Prominent degenerative calcaneal enthesophytes. There is atherosclerosis. No acute fracture, subluxation or dislocation. Impression: 1: Moderate polyarticular osteoarthritis. Reviewed, dictated and finalized at location O. Impression: 1: Moderate polyarticular osteoarthritis.
--- OUTSIDE RECORDS SUMMARY | 2025-06-27 10:56 | XMS_ITS | Encounter Summary ---
Author Organization [facility] Healthcare Address [address] [place] [address] Care Team Providers Care Dredgemaster Name Role Phone Abundio Howard MD Primary Care Provider [phone] Encounter Details Date Type Department Care Team (Late st Contact Info) Description 09/28/2019 Documentation [facility] Pre Anesthesia Testing [address] [place] [address] Damari Knapp RN Social History Tobacco Use Types Packs/Day Years Used Date Smoking Tobacco: Former Cigarettes 2 21.1 1 968 - 12/17/1988 Smokeless Tobacco: Former Chew Quit: 1988 Alcohol Use Standard Drinks/Week Comments Yes 0 (1 standard drink = 0.6 oz pur e alcohol) occasionally--social Sex and Gender Information Value Date Recorded Sex Assigned at Not on file Legal Sex Male 1:18 PM PHOTONICS TECHNICIAN Gender Identity Not on file Sexual Orientation Not on file documented as of this encounter Last Filed Vital Signs Vital Sign Reading Time Taken Comments Blood Pressure - - Pulse - - Temperature - - Respiratory Rate - - Oxygen Saturation - - Inhaled Oxygen Concentration - - Weight 88.5 kg (195 lb) 09/28/2019 8:55 AM PHOTONICS TECHNICIAN Height 172.7 cm (5' 8) 09/28/2019 8:55 AM PHOTONICS TECHNICIAN Body Mass Index 29.65 09/28/2019 8:55 AM PHOTONICS TECHNICIAN documented in this encounter Miscellaneous Notes * Pre-Procedure Instructions - Damari Knapp RN - 09/28/2019 8:[address] Virgen here to evaluate pt's airway for surgery. Dr. Virgen explained to pt. That he did not feelthat the pt. Could be safely done at the [facility] because of pt's limited movement of neck. EE ONICS TECHNICIAN documented in this encounter Plan of Treatment Not on file documented as of this encounter Visit Diagnoses Not on filedocumented in this encounter Discontinued Medications Medication Sig Discontinue Reason Start Date End Da te xzmfzzgq-sjmg-bbz0-C-man g-bosw 750 mg-644 mg- 30 mg-1 mg [...] BI-FLEX ORAL) Take 25 mg by mouth medical diagnostic radiographer before breakfast telmisartan-hydr ochlorothiazid (MICARDIS HCT) 40-12.5 mg per tablet Take 1 tablet by mouth medical diagnostic radiographer before breakfast 1 added in this encounter Care Teams Dredgemaster Relationship Specialty Start Date End Date Abundio Howard MD PCP - General Internal Medicine 06/13/19 documented as of this encounter
--- OUTSIDE RECORDS SUMMARY | 2025-06-27 10:56 | XMS_ITS | Clinical Summary ---
Author Organization [facility] Address [address] [place] [address] Care Team Providers Care Triage Licensed Practical Nurse Name Role Phone Abundio Howard MD Primary Care Provider [phone] Allergies No known active allergies Medications atorvastatin (LIPITOR) 80 mg tablet Take 1 tablet (80 mg total) by mouth nightly Take one tablet daily. 4 Active levETIRAcetam (KEPPRA) 500 mg tablet Take 1 tablet (500 mg total) by mouth 2 times daily Take one tablet twice daily as directed. Active fexofenadine (SUE) 180 mg tablet Take 1 tablet (180 mg total) by mouth women's health care nurse practitioner before breakfast 4 Active amLODIPine (NORVASC) 10 mg tabletIndicatio ns:hypertension Take 1 tablet (10 mg total) by mouth women's health care nurse practitioner before breakfast Active mv,Ca,min-iron- FA-lycopene 8 mg iron- 200 mcg-600 mcg tabletIndicatio ns:stop 5 days before surgery Take 1 tablet by mouth women's health care nurse practitioner before breakfast Active metoprolol (LOPRESSOR) 50 mg tablet Take 1 tablet (50 mg total) by mouth 2 (two) times a day Active glucosamine/cho ndr barrios A sod (OSTEO BI-FLEX ORAL) Take 25 mg by mouth women's health care nurse practitioner before breakfast Active UNABLE TO FIND Med Name:Sambucol 2 gummies daily Active telmisartan-hyd rochlorothiazid (MICARDIS HCT) 80-12.5 mg per tablet Take 1 tablet by mouth daily Active levothyroxine (SYNTHROID) 125 mcg tablet Take 1 tablet (125 mcg total) by mouth women's health care nurse practitioner before breakfast Active aspirin 81 mg enteric coated tablet Take 1 tablet (81 mg total) by mouth daily Active Active Problems Problem Noted Date Diagnosed Date Personal history of colonic polyps 01/10/2023 Overview (01/10/2023): Added automatically from request for surgery [id number] Prostate cancer 10/19/2021 Overview (10/19/2021): Added automatically from request for surgery [id number] Tendon rupture, traumatic. q uadriceps, right, subsequent encounter 09/28/2019 Overview (09/28/2019): Added automatically from request for surgery [id number] Rupture of right quadriceps tendon 09/28/2019 Overview (09/28/2019): Added automatically from request for surgery [id number] Elevated PSA 06/14/2019 Overview (06/14/2019): Added automatically from request for surgery [id number] Seizure disorder as sequela of cerebrovascular a [...] Description 04/12/2025 12:00 PM CDT Office Visit [facility] Medicine Stroke [address] [place] [address] Nancy Etienne MD Abnormal vision as late [...] REPAIR Right COLONOSCOPY 5 years ago at [facility] COLONOSCOPY 05/18/2023 Medical History Medical History Date [...] on file 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 Gender Identity Not on file Sexual Orientation [...] Pneumococcal vaccine 65+ (2 of 2 - PCV20 or PCV21) 09/19/2019 Fall Risk Assessment 11/25/2022 11/25/2021 DTaP/Tdap/Td Vaccine (2 - Td or Tdap) 06/27/2025 Influenza Vaccine (#1) 2025 09/19/2019 Colon Cancer Screening-Colonoscopy 05/18/20332022 Hepatitis C Screening Completed 07/09/2014 Colon Cancer Screening-CT Colonography Discontinued Colon Cancer Screening-DNA Stool Discontinued 05/18/20 Colon Cancer Screening-FIT Discontinued 05/18/2023 Colon Cancer Screening-Sigmoidoscopy Discontinued 05/07 Medical Devices Implanted Type Area Vocational Childcare Teacher Device Identifier Shelf Expiration Date Model / [...] Wright MD - 05/18/2023 9:27 AM CDT [facility] Patient Name: Rai Stover Procedure Date: 05/18/2023 9:27 AM Date of : 1950 Admit Type: Outpatient Age: 73 Gender: Male Attending MD: Ashleigh Wright M.D. Room: [facility] END[facility]COPY ROOM 1 Note Status: Finalized Patient [...] under direct vision. The Pediatric Colonoscope PCF-H190L [id number] was introducedthrough the anus and advanced to [...] 9:27 AM Procedure Code(s): --- Professional --- 38516, Colonoscopy, flexible; with biopsy, single or multiple [...] perforation orabscess without bleeding CPT copyright 2020 [employer]. All rights reserved. The codes documented in this report are preliminary and upon dry kiln burner reviewmay be revised to meet current compliance requirements. Recognized by the [employer] for promoting quality in endoscopy Ashleigh Wright MD ENDOSCOPY PROCEDURES Final Result * Serum Hepatitis panel (07/09/2014 2:16 AM CDT) HBV surface ag Negative NEG HISTO RICAL RESULTS HCV ab Negative NEG HISTORICAL RESULTS Comment: Interpretive Data If confirmation is required, call Laboratory Customer Service to request sample to be sent to [facility] for Hepatitis C Virus (HCV) RNA Detection and Quantitation by Real-Time Reverse Skiver Machine Operator-PCR (RT-PCR). Current interpretive data was last revised [...] Most Recently Relevant to Health Maintenance Insurance [facility] MEDICARE ADVANTAGE [facility] MEDICARE ADVANTAGE [facility] MEDICARE ADVANTAGE Advance Directives For more information, please contact: [phone] * Full Code (Latest Code Status on File) Date Activated Date Inactivated Comments 05/18/2023 10:19 AM 05/18/2023 4:09 PM * Full Code Date Activated Date Inactivated Comments 05/18/2023 10:19 AM 05/18/2023 10:19 AM * Full Code Date Activated Date Inactivated Comments 11/24/2021 2:01 PM 11/25/2021 7:04 PM Care Teams Triage Licensed Practical Nurse Relationship Specialty Start Date End Date Abundio Howard MD PCP - General Internal Medicine 06/13/19
--- OUTSIDE RECORDS SUMMARY | 2025-06-27 10:56 | XMS_ITS | Clinical Summary ---
Author Organization [facility] Address [address], [address] [address] Phone Care Team Providers Care Lapidarist Name Role Phone Hong Galdamez MD Primary Care Provider [phone] Allergies No known active allergies Medications aspirin [...] Start Date Job End Date Retired from [employer] Not on file Not on file Not [...] (HCV) Screening 1950 TdaP Immunization 1950 Cologuard 1995 Immunochemical Fecal Occult Blood 1995 Pneumococcal Immunization (5 0+ years) (1 of 1 - PCV) 01/16/2000 Zoster Immunization (1 of 2) 01/16/2000 Colonoscopy 07/26/2022 07/26/2017 Colorectal Cancer Screening 07/26/2022 SARS-COV-2 Immunization (1 - 2023-25 season) 2024 Respiratory Syncytial Virus (RSV) Immunization (Adult) (1 - 1-dose 75+ series) 2025 Influenza Immunization (#1) 2025 Hepatitis B Immunization Aged Out No longer eligible based on patient's age to complete this topic Human Papillomavirus (HPV) Immunization Aged Out No longer eligible b ased on patient's age to complete this topic Meningococcal Immunization (ACWY) Aged Out No longer eligible based on patient's age to complete this topic Rotavirus Immunization Aged Out No lo nger eligible based on patient's age to complete this topic Insurance MEDICARE Care Teams Lapidarist Relationship Specialty Start Date End Date Hong Galdamez MD [address] [place] [id number] PCP - General General Surgery 01/17/17
== END 2025-06-27 10:13 | disposition home or self-care (01) ==
LOC: CHSIMG 10:17
PROVIDERS: PCP Internal Medicine; Visit Provider Internal Medicine
DX: S99.922A Unspecified injury of left foot, initial encounter (principal); M19.072 Primary osteoarthritis, left ankle and foot
CPT/HCPCS: 73630

== ENCOUNTER 2025-08-29 10:35 | Outpatient (CLI) | payer MEDICARE, SELFPAY ==
[2025-08-29 10:46] LABS: Hematocrit 42.1 % (37.0-46.0); Hemoglobin 14.6 g/dL (12.4-15.3); Mean Corpuscular HGB Conc 34.7 g/dL (32-36); Mean Corpuscular Hemoglobin 31.6 pg (27.0-31.0); Mean Corpuscular Volume 91.1 fL (78.0-102.0); Platelet Count Result 230 K/mm3 (150-420); Red Blood Count 4.62 M/mm3 (4.70-6.10); White Blood Count 9.4 K/mm3 (4.8-10.8)
[2025-08-29 11:23] LABS: Alanine Aminotransferase 32 U/L (6-50); Albumin Level 4.7 g/dL (3.5-5.1); Alkaline Phosphatase 91 U/L (38-126); Anion Gap 8 mmol/L (4-12); Aspartate Amino Transferase 38 U/L (17-59); Bilirubin,Total 0.8 mg/dL (0.2-1.3); Blood Urea Nitrogen 20 mg/dL (9-20); CRP 1.2 mg/dL (<1.0); Calcium 9.9 mg/dL (8.4-10.2); Carbon Dioxide 34 mmol/L (22-30); Chloride 98 mmol/L (98-107); Estimated Glomerular Filt Rate > 60; Glucose 135 mg/dL (65-110); Osmolality Calculated 294 mOsm/kg (285-295); Potassium 4.6 mmol/L (3.4-5.0); Sodium 140 mmol/L (137-145); Total Protein 7.8 g/dL (6.3-8.2); Uric Acid 6.0 mg/dL (3.5-8.5)
--- OUTSIDE RECORDS SUMMARY | 2025-08-29 11:37 | XMS_ITS | Clinical Summary ---
Author Organization [facility] Address [address] [place] [address] Care Team Providers Care Electric Meter Tester Helper Name Role Phone Abundio Howard MD Primary Care Provider Allergies No known active allergies Medications atorvastatin (LIPITOR) 80 mg tablet Take 1 tablet (80 mg total) by mouth nightly Take one tablet daily. 4 Active levETIRAcetam (KEPPRA) 500 mg tablet Take 1 tablet (500 mg total) by mouth 2 times daily Take one tablet twice daily as directed. Active fexofenadine (SUE) 180 mg tablet Take 1 tablet (180 mg total) by mouth tool crib supervisor before breakfast 4 Active amLODIPine (NORVASC) 10 mg tabletIndicatio ns:hypertension Take 1 tablet (10 mg total) by mouth tool crib supervisor before breakfast Active mv,Ca,min-iron- FA-lycopene 8 mg iron- 200 mcg-600 mcg tabletIndicatio ns:stop 5 days before surgery Take 1 tablet by mouth tool crib supervisor before breakfast Active metoprolol (LOPRESSOR) 50 mg tablet Take 1 tablet (50 mg total) by mouth 2 (two) times a day Active glucosamine/cho ndr barrios A sod (OSTEO BI-FLEX ORAL) Take 25 mg by mouth tool crib supervisor before breakfast Active UNABLE TO FIND Med Name:Sambucol 2 gummies daily Active telmisartan-hyd rochlorothiazid (MICARDIS HCT) 80-12.5 mg per tablet Take 1 tablet by mouth daily Active levothyroxine (SYNTHROID) 125 mcg tablet Take 1 tablet (125 mcg total) by mouth tool crib supervisor before breakfast Active aspirin 81 mg enteric coated tablet Take 1 tablet (81 mg total) by mouth daily Active Active Problems Problem Noted Date Diagnosed Date Personal history of colonic polyps 01/10/2023 Overview (01/10/2023): Added automatically from request for surgery [id number] Prostate cancer 10/19/2021 Overview (10/19/2021): Added automatically from request for surgery [id number] Tendon rupture, traumatic. 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 01/21/2017 Overview (02/17/2018): Description: right superior quadrantanopia Cerebral atherosclerosis 10/17/2015 Thyroid nodule 02/12/2015 Isolated cervical dystonia 09/06/2014 Essential hypertension 09/06/2014 Hyperlipidemia 09/06/2014 Surgical History Surgery Date Site/Laterality Comments IR FINE NEEDLE ASPIRATION W IMAGE GUIDANCE 03/19/2015 N/A IR FINE NEEDLE ASPIRATION W IMAGE GUIDANCE 03/19/2015 N/A IR FINE NEEDLE ASPIRATION W IMAGE GUIDANCE 03/19/2015 N/A THYROID SURGERY 11/07/2012 - 11/06/2013 PROSTATE BIOPSY 9\3\2018 KNEE ARTHROSCOPY, MEDIAL PATELLO FEMORAL LIGAMENT REPAIR Right COLONOSCOPY 5 years ago at [facility] COLONOSCOPY 05/18/2023 Medical History Medical [...] on file 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 Room: [facility] ENDOSCOPY ROOM 1 Note Status: [...] under direct vision. The Pediatric Colonoscope PCF-H190L [id number] was introducedthrough the anus and advanced to [...] 9:27 AM Procedure Code(s): --- Professional --- 71978, Colonoscopy, flexible; with biopsy, single or multiple [...] perforation orabscess without bleeding CPT copyright 2020 [employer]. All rights reserved. The codes documented in this report are preliminary and upon furrier apprentice reviewmay be revised to meet current compliance requirements. Recognized by the [employer] for promoting quality in endoscopy us Ashleigh Wright MD ENDOSCOPY PROCEDURES Final Result * Serum Hepatitis panel (07/09/2014 2:16 AM CDT) HBV surface ag Negative NEG HISTO RICAL RESULTS HCV ab Negative NEG HISTORICAL RESULTS Comment: Interpretive Data If confirmation is required, call Laboratory Customer Service to request sample to be sent to [facility] for Hepatitis C Virus (HCV) RNA Detection and Quantitation by Real-Time Reverse Detail Maker And Fitter-PCR (RT-PCR). Current interpretive data was last revised [...] on 2008. Serum 07/09/2014 2:16 AM CDT us Everardo Herrmann MD PhD LAB BLOOD ORDER MISBAH Final Result HISTORICAL RESULTS from Last 3 Months or Most Recently Relevant to Health Maintenance Insurance [employer] MEDICARE ADVANTAGE [place] [id number] UHC MEDICARE ADVANTAGE [place] [id number] [employer] MEDICARE ADVANTAGE [place] [id number] Advance Directives For more information, please contact: [phone] * Full Code (Latest Code Status on File) Date Activated Date Inactivated Comments 05/18/2023 10:19 AM 05/18/2023 4:09 PM * Full Code Date Activated Date Inactivated Comments 05/18/2023 10:19 AM 05/18/2023 10:19 AM * Full Code Date Activated Date Inactivated Comments 11/24/2021 2:01 PM 11/25/2021 7:04 PM Care Teams Electric Meter Tester Helper Relationship Specialty Start Date End Date Abundio Howard MD PCP - General Internal Medicine 06/13/19
--- OUTSIDE RECORDS SUMMARY | 2025-08-29 11:37 | XMS_ITS | Encounter Summary ---
Author Organization [facility] Address [address] [place] [address] Care Team Providers Care Rn Advanced Name Role Phone Abundio Howard MD Primary Care Provider [phone] Encounter Details Date Type Department Care Team (Late st Contact Info) Description 09/28/2019 Documentation [facility] Pre Anesthesia Testing [address] [place] [address] Damari Knapp RN Social History Tobacco Use Types Packs/Day Years Used Date Smoking Tobacco: Former Cigarettes 2 21.1 1 968 - 12/17/1988 Smokeless Tobacco: Former Chew Quit: 1988 Alcohol Use Standard Drinks/Week Comments Yes 0 (1 standard drink = 0.6 oz pur e alcohol) occasionally--social Sex and Gender Information Value Date Recorded Sex Assigned at Not on file Legal Sex Male 1:18 PM [employer] Gender Identity Not on file Sexual Orientation Not on file documented as of this encounter Last Filed Vital Signs Vital Sign Reading Time Taken Comments Blood Pressure - - Pulse - - Temperature - - Respiratory Rate - - Oxygen Saturation - - Inhaled Oxygen Concentration - - Weight 88.5 kg (195 lb) 09/28/2019 8:55 AM [employer] Height 172.7 cm (5' 8) 09/28/2019 8:55 AM [employer] Body Mass Index 29.65 09/28/2019 8:55 AM [employer] documented in this encounter Miscellaneous Notes * Pre-Procedure Instructions - Damari Knapp RN - 09/28/2019 8:[address] Virgen here to evaluate pt's airway for surgery. Dr. Virgen explained to pt. That he did not feelthat the pt. Could be safely done at the [facility] because of pt's limited movement of neck. EE [employer] documented in this encounter Plan of Treatment Not on file documented as of this encounter Visit Diagnoses Not on filedocumented in this encounter Discontinued Medications Medication Sig Discontinue Reason Start Date End Da te [id number]-man g-bosw 750 mg-644 mg- 30 mg-1 mg [...] BI-FLEX ORAL) Take 25 mg by mouth race car driver before breakfast telmisartan-hydr ochlorothiazid (MICARDIS HCT) 40-12.5 mg per tablet Take 1 tablet by mouth race car driver before breakfast 1 added in this encounter Care Teams Rn Advanced Relationship Specialty Start Date End Date Abundio Howard MD PCP - General Internal Medicine 06/13/19 documented as of this encounter
--- OUTSIDE RECORDS SUMMARY | 2025-08-29 11:37 | XMS_ITS | Clinical Summary ---
Author Organization [facility] Address [address], [place] [address] Phone Care Team Providers Care Checkerer Hand Name Role Phone Hong Galdamez MD Primary Care Provider [phone] Allergies No known active allergies Medications aspirin [...] Start Date Job End Date Retired from [employer] Not on file Not on file Not [...] Colonoscopy 07/26/2022 07/26/2017 Colorectal Cancer Screening 07/26/2022 Respiratory Syncytial Virus (RSV) Immunization (Adult) (1 - 1-dose 75+ series) 2025 Influenza Immunization (#1) 2025 SARS-COV-2 Immunization ( season) 2025 Hepatitis B Immunization Aged Out No [...] complete this topic Insurance MEDICARE Care Teams Checkerer Hand Relationship Specialty Start Date End Date Hong Galdamez MD [address] [place] [id number] PCP - General General Surgery 01/17/17
[2025-08-29 11:50] LABS: Prostate Specific Antigen < 0.1 ng/mL (< OR = 4.0); Thyroid Stimulating Hormone 0.875 uIU/mL (0.465-4.680)
== END 2025-08-29 10:36 | disposition home or self-care (01) ==
LOC: CHSLAB 10:36
PROVIDERS: PCP Internal Medicine; Visit Provider Internal Medicine
DX: M19.072 Primary osteoarthritis, left ankle and foot (principal); C61 Malignant neoplasm of prostate; E03.9 Hypothyroidism, unspecified
CPT/HCPCS: 36415; 80053; 84153; 84443; 84550; 85027; 86140